=== PATIENT | female | born 1935 | race Caucasian/White ===

== ENCOUNTER 2017-06-10 11:45 | Observation (INO) ==
[2017-06-10] MEDS ORDERED: SALINE FLUSH 10ml SYRINGE IVF PRN (12:21)
--- OUTSIDE RECORDS SUMMARY | 2017-06-10 12:30 | External Medical Summary | Referral Summary ---
:1935 Author Organization [facility] Address [address] [place] [address] [place] [address] Care Team Providers Name Role Phone Lang Morgan Jorge Alberto Primary Care Physician Encounter Date(s): 06/25/15 - 06/25/15 [facility] [address] [place] [phone] Discharge Diagnosis: Acute upper respiratory infection Discharge Disposition: 01-Home or Self Care Attending Physician: Sunita Zamora PA-C Admitting Physician: Sunita Zamora PA-C Vital Signs Most recent to oldest [Reference Range]: 1 Temperature Tympanic [36.6-38.1 degC] 36.3 degC *LOW* (06/25/15 9:04 AM) Peripheral Pulse Rate [60-100 bpm] 68 bpm (06/25/15 9:04 AM) Respiratory Rate [14-20 br/min] 18 br/min (06/25/15 9:04 AM) Blood Pressure [90-140/60-90 mmHg] 110/60 mmHg (06/25/15 9:04 AM) Problem List Condition Effective Dates Status Health Status Informant Allergy(Confirmed) Active Appendectomy(Confirmed) Active Abnormal blood sugar(Confirmed) Active Paranoid schizophrenia, chronic Active condition(Confirmed) Constipation(Confirmed) Active Depression(Confirmed) Active Disease-skin conditions(Confirmed) Active Sun exposure, severe/5 serious Active sunburns(Confirmed) Hormone replacement therapy(Confirmed) Active High cholesterol(Confirmed) Active Hysterectomy(Confirmed) Active Inflamed seborrheic keratosis Active (disorder)(Confirmed) Insomnia(Confirmed) Active Acute knee pain(Confirmed) Active Basal cell carcinoma(Confirmed) Active Breast cancer(Confirmed) Active Hot flashes(Confirmed) Active Non-neoplastic nevus Active (disorder)(Confirmed) Onychomycosis(Confirmed) Active Osteoarthritis(Confirmed) Active Pneumonia(Confirmed) 2007 Active Pneumothorax(Confirmed) Active 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) History for Hypercholesterolemia Active without hypertriglyceridemia(Confirmed) Scarlet fever(Confirmed) 1940 Active Schizophrenia(Confirmed) Active Seborrheic keratosis(Confirmed) Active STD (female)(Confirmed) 1979 Active 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 Chicken pox(Confirmed) Active Allergies, Adverse Reactions, Alerts No Known Allergies Medications Abilify 5 mg, Oral, Daily, 0 Refill(s) Start Date: 10/31/13 Status: Orderedcalcium carbonate 500 mg, Oral, Daily, 0 Refill(s) Start Date: 10/31/13 Status: OrderedFish Oil 1000 mg oral capsule 1 caps, Oral, Daily, 0 Refill(s) Start Date: 10/31/13 Status: OrderedFosamax 70 mg oral tablet See Instructions, TAKE 1 TABLET EVERY WEEK, # 12 tabs, 1 Refill(s), eRx: [facility], TAKE 1 TABLET EVERY WEEK Start Date: 06/01/15 Status: OrderedMetamucil 1.7 g, Oral, Daily, constipation, 0 Refill(s) Start Date: 10/31/13 Status: OrderedMilk of Magnesia 30 mL, Oral, Bedtime (once a day), as needed for constipation, 0 Refill(s) Start Date: 10/31/13 Status: OrderedPravachol 40 mg oral tablet 40 mg 1 tabs, Oral, Daily, # 30 tabs, 0 Refill(s), 1 tabs Oral Daily Start Date: 04/27/15 Status: OrderedSenna S 1 tabs, Oral, Bedtime (once a day), Constipation, 0 Refill(s) Start Date: 10/31/13 Status: OrderedSEROquel XR 100 mg, Oral, qPM, 0 Refill(s) Start Date: 10/31/13 Status: OrderedVitamin C 100 mg, Oral, Daily, 0 Refill(s) Start Date: 10/31/13 Status: Orderedvitamin E 400 Intl_Units, Oral, Daily, 0 Refill(s) Start Date: 10/31/13 Status: OrderedZithromax Z-Tevin 250 mg oral tablet 1 packets, Oral, Daily, as directed on package labeling, X 5 days, # 6 tabs, 0 Refill(s), Pharmacy: [facility] #[id number], 1 packets Oral Daily,x5 days, Instr:as directed on package labeling Start Date: 06/25/15 Stop Date: 06/30/15 Status: Ordered Results No data available for this section Immunizations Vaccine Date Refusal Reason tetanus/diphth/pertuss (Tdap) adult/adol 05/20/13 influenza virus vaccine, inactivated 02/24/15 zoster vaccine live1 05/22/14 1Result Comment: [03/02/2015] [facility] Procedures Procedure Date Related Diagnosis Body Site Colonoscopy 2011 Knee replacement-right 10/12/09 Insertion of Venous access device maintenance 04/21/08 with SQ resev. Rt Mastectomy with sentinel node 03/21/08 Knee replacement-left 03/27/06 Appendectomy 1956 Tonsillectomy 1956 Cataract extraction Hysterectomy Social History Social History Type Response Smoking Status Never smoker Assessment and Plan Extracted from: Title: Ambulatory Patient Education Author: Sunita Zamora PA-C Date: ENT Upper Respiratory Infection, Adult An upper respiratory infection (URI) is also sometimes known as the common cold. The upper respiratory tract includes the nose, sinuses, throat, trachea, and bronchi. Bronchi are the airways leading to the lungs. Most people improve within 1 week, but symptoms can last up to 2 weeks. A residual cough may last even longer. CAUSES Many different viruses can infect the tissues lining the upper respiratory tract. The tissues become irritated and inflamed and often become very moist. Mucus production is also common. A cold is contag ious. You can easily spread the virus to others by oral contact. This includes kissing, sharing a glass, coughing, or sneezing. Touching your mouth or nose and then touching a surface, which is then isabel ched by another person, can also spread the virus. SYMPTOMS Symptoms typically develop 1 to 3 days after you come in contact with a cold virus. Symptoms vary from person to person. They may include: Runny nose. Sneezing. Nasal congestion. Sinus irritation. Sore throat. Loss of voice (laryngitis). Cough. Fatigue. Muscle aches. Loss of appetite. Headache. Low-grade fever. DIAGNOSIS You might diagnose your own cold based on familiar symptoms, since most people get a cold 2 to 3 times a year. Your caregiver can confirm this based on your exam. Most importantly, your caregiver can ch sana that your symptoms are not due to another disease such as strep throat, sinusitis, pneumonia, asthma, or epiglottitis. Blood tests, throat tests, and X- rays are not necessary to diagnose a common co ld, but they may sometimes be helpful in excluding other more serious diseases. Your caregiver will decide if any further tests are required. RISKS AND COMPLICATIONS You may be at risk for a more severe case of the common cold if you smoke cigarettes, have chronic heart disease (such as heart failure) or lung disease ( such as asthma), or if you have a weakened immun e system. The very young and very old are also at risk for more serious infections. Bacterial sinusitis, middle ear infections, and bacterial pneumonia can complicate the common cold. The common cold ca n worsen asthma and chronic obstructive pulmonary disease (COPD). Sometimes, these complications can require emergency medical care and may be life- threatening. PREVENTION The best way to protect against getting a cold is to practice good hygiene. Avoid oral or hand contact with people with cold symptoms. Wash your hands often if contact occurs. There is no clear evidence that vitamin C, vitamin E, echinacea, or exercise reduces the chance of developing a cold. However, it is always recommended to get plenty of rest and practice good nutrition. TREATMENT Treatment is directed at relieving symptoms. There is no cure. Antibiotics are not effective, because the infection is caused by a virus, not by bacteria. Treatment may include: Increased fluid intake. Sports drinks offer valuable electrolytes, sugars , and fluids. Breathing heated mist or steam (vaporizer or shower). Eating chicken soup or other clear broths, and maintaining good nutrition. Getting plenty of rest. Using gargles or lozenges for comfort. Controlling fevers with ibuprofen or acetaminophen as directed by your caregiver. Increasing usage of your inhaler if you have asthma. Zinc gel and zinc lozenges, taken in the first 24 hours of the common cold, can shorten the duration and lessen the severity of symptoms. Pain medicines may help with fever, muscle aches, and throat linda n. A variety of non-prescription medicines are available to treat congestion and runny nose. Your caregiver can make recommendations and may suggest nasal or lung inhalers for other symptoms. HOME CARE INSTRUCTIONS Only take evnu-fvn-lzwqkrk or prescription medicines for pain, discomfort , or fever as directed by your caregiver. Use a warm mist humidifier or inhale steam from a shower to increase air moisture. This may keep secretions moist and make it easier to breathe. Drink enough water and fluids to keep your urine clear or pale yellow. Rest as needed. Return to work when your temperature has returned to normal or as your caregiver advises. You may need to stay home longer to avoid infecting others. You can also use a face mask and careful hand washing to prevent spread of the virus. SEEK MEDICAL CARE IF: After the first few days, you feel you are getting worse rather than better. You need your caregiver's advice about medicines to control symptoms. You develop chills, worsening shortness of breath, or brown or red sputum. These may be signs of pneumonia. You develop yellow or brown nasal discharge or pain in the face, especially when you bend forward. These may be signs of sinusitis. You develop a fever, swollen neck glands, pain with swallowing, or white areas in the back of your throat. These may be signs of strep throat. SEEK IMMEDIATE MEDICAL CARE IF: You have a fever. You develop severe or persistent headache, ear pain, sinus pain, or chest pain. You develop wheezing, a prolonged cough, cough up blood, or have a change in your usual mucus (if you have chronic lung disease). You develop sore muscles or a stiff neck. Document Released: 11/01/2001 Document Revised: 07/30/2012 Document Reviewed: 08/13/2014 [facility] Patient Information 2015 [facility]. This information is not intended to replace advice given to you by your health care provider. Make sure you discuss any questions you have with your health care provider. No follow up information was provided. Extracted from: Title: Office Visit Note- URI Author: Sunita Zamora PA-C Date: 06/25/15 Assessment/Plan Acute upper respiratory infection Pt states that she "always gets Amoxicillin " and wants something different. Will treat with Z-tevin at this time. Pt advised to push fluids and rest. She is to let us k now before she leaves if she is not doing any better. Dr. Morgan notified that pt is planning on moving. Ordered: Office Visit Level 3 Est [address] Orders: azithromycin, 1 packets, Oral, Daily, as directed on package labeling , X 5 days, # 6 tabs, 0 Refill(s), [facility] #[id number], 1 packets Oral Daily,x5 days,Instr:as directed on package labeling
--- OUTSIDE RECORDS SUMMARY | 2017-06-10 12:30 | External Medical Summary | Referral Summary ---
:1935 Author Organization [facility] , D[facility]at[facility] Address [address] [place] [address] Care Team Providers Name Role Phone Lang Morgan Primary Care Physician Encounter [facility] [id number] Date(s): 02/25/15 - 02/25/15 [facility] [address] [place] [address]- [place] Discharge Diagnosis: Seborrheic keratosis, inflamed Discharge Diagnosis: Solar degeneration Discharge Diagnosis: Seborrheic keratosis Discharge Diagnosis: History of basal cell carcinoma Discharge Diagnosis: Skin tag Discharge Disposition: 01-Home or Self Care Attending Physician: Jimi Caballero MD Admitting Physician: Jimi Caballero MD Referring Physician: Lang Morgan MD Vital Signs No data available for this section Problem List Condition Effective Dates Status Health [...] for Hypercholesterolemia Active without hypertriglyceridemia(Confirmed) Scarlet fever(Confirmed) 1939 Active Schizophrenia(Confirmed) Active Seborrheic keratosis(Confirmed) Active STD [...] 10/31/13 Status: OrderedFosamax 70 mg oral tablet 70 mg 1 tabs, Oral, qWeek, # 12 tabs, 1 Refill(s), Pharmacy: [facility], 1 tabs Oral qWeek Start Date: 01/27/15 Status: OrderedMetamucil 1.7 g, Oral, Daily, constipation, 0 Refill(s) Start Date: 10/31/13 Status: OrderedMilk of Magnesia 30 mL, Oral, Bedtime (once a day), as needed for constipation, 0 Refill(s) Start Date: 10/31/13 Status: OrderedPravachol 40 mg oral tablet 40 mg 1 tabs, Oral, Daily, # 90 tabs, 1 Refill(s), Pharmacy: [facility], 1 tabs Oral Daily Start Date: 02/06/15 Status: OrderedSenna S 1 tabs, Oral, Bedtime (once a day), Constipation, 0 Refill(s) Start Date: 10/31/13 Status: OrderedSEROquel XR 100 mg, Oral, qPM, 0 Refill(s) Start Date: 10/31/13 Status: OrderedVitamin C 100 mg, Oral, Daily, 0 Refill(s) Start Date: 10/31/13 Status: Orderedvitamin E 400 Intl_Units, Oral, Daily, 0 Refill(s) Start Date: 10/31/13 Status: Ordered Results No data available for this section Immunizations Vaccine Date Refusal Reason tetanus/diphth/pertuss (Tdap) adult/adol 05/20/13 influenza virus vaccine, inactivated 02/24/15 zoster vaccine live1 05/22/14 1Result Comment: [03/02/2015] [facility] Procedures Procedure Date Related Diagnosis Body Site Removal of skin tags, multiple fibrocutaneous 02/25/15 tags, any area; up to and including 15 lesions.. Colonoscopy 2011 Knee replacement-right 10/12/09 Insertion of Venous access device maintenance 04/21/08 with SQ resev. Rt Mastectomy with sentinel node 03/21/08 Knee replacement-left 03/27/06 Appendectomy 1956 Tonsillectomy 1956 Cataract extraction Hysterectomy Social History Social History Type Response Smoking Status Never smoker Assessment and Plan Extracted from: Title: Office Visit Note Author: Jimi Caballero MD Date: 02/25/15 Assessment/Plan History of basal cell carcinoma Seborrheic keratosis Seborrheic keratosis, inflamed Solar degeneration
--- OUTSIDE RECORDS SUMMARY | 2017-06-10 12:30 | External Medical Summary | Referral Summary ---
:1935 Author Organization [facility] [address] [place] [address] Care Team Providers Name Role Phone Lang Morgan Primary Care Physician Encounter [facility] [id number] Date(s): 06/06/16 - 06/06/16 [facility] [address] [place] [address] [place] Discharge Diagnosis: Breast cancer Discharge Diagnosis: Solar degeneration Discharge Diagnosis: Osteoporosis Discharge Diagnosis: Inflamed seborrheic keratosis (disorder) Discharge Diagnosis: Abnormal blood sugar Discharge Diagnosis: Schizophrenia Discharge Diagnosis: History for Hypercholesterolemia without hypertriglyceridemia Discharge Disposition: 01-Home or Self Care Attending Physician: Lang Morgan MD Admitting Physician: Lang Morgan MD Vital Signs Most recent to oldest [Reference Range]: 1 Blood Pressure [90-140/60-90 mmHg] 120/70 mmHg (06/06/16 9:56 AM) Problem List Condition Effective Dates Status [...] nevus Active (disorder)(Confirmed) Onychomycosis(Confirmed) Active Osteoarthritis(Confirmed) Active Osteoporosis(Confirmed) Active Pneumonia(Confirmed) 2007 Active Pneumothorax(Confirmed) Active 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) History for Hypercholesterolemia Active without hypertriglyceridemia(Confirmed) Scarlet fever(Confirmed) 1940 Active Schizophrenia(Confirmed) Active Seborrheic keratosis(Confirmed) Active STD (female)(Confirmed) 1979 Active 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 Chicken pox(Confirmed) Active Allergies, Adverse Reactions, Alerts No Known Allergies Medications beta-carotene 25,000 units oral capsule 25,000 units 1 caps, Oral, Daily, 0 Refill(s) Start Date: 07/16/15 Status: Orderedcalcium carbonate 500 mg, Oral, Daily, 0 Refill(s) Start Date: 10/31/13 Status: OrderedFosamax 70 mg oral tablet See Instructions, TAKE 1 TABLET EVERY WEEK, # 12 tabs, 1 Refill(s), eRx: [facility], TAKE 1 TABLET EVERY WEEK Start Date: 06/01/15 Status: OrderedMetamucil 1.7 g, Oral, Daily, constipation, 0 Refill(s) Start Date: 10/31/13 Status: OrderedMilk of Magnesia 30 mL, Oral, Bedtime (once a day), as needed for constipation, 0 Refill(s) Start Date: 10/31/13 Status: Orderedpravastatin 40 mg oral tablet See Instructions, TAKE 1 TABLET EVERY DAY, # 90 tabs, eRx: [facility], TAKE 1 TABLET EVERY DAY Start Date: 01/13/16 Status: OrderedVitamin C 500 mg, Oral, Daily, 0 Refill(s) Start Date: 10/31/13 Status: Orderedvitamin E 400 Intl_Units, Oral, Daily, 0 Refill(s) Start Date: 10/31/13 Status: Ordered Results Chemistry Most recent to oldest [Reference Range]: 1 Sodium Lvl [135-144 mEq/L] 142 mEq/L (06/06/16 10:23 AM) Potassium Lvl [3.5-5.2 mEq/L] 4.2 mEq/L (06/06/16 10:23 AM) Chloride [99-111 mEq/L] 107 mEq/L (06/06/16 10:23 AM) CO2 [22-31 mEq/L] 28 mEq/L (06/06/16 10:23 AM) AGAP [3-20] 7 (06/06/16 10:23 AM) BUN [10-20 mg/dL] 15 mg/dL (06/06/16 10:23 AM) Glucose Lvl [70-99 mg/dL] 94 mg/dL (06/06/16 10:23 AM) Creatinine Lvl [0.57-1.11 mg/dL] 0.76 mg/dL (06/06/16 10:23 AM) eGFR [>60 mL/min] >60 mL/min 1 (06/06/16 10:23 AM) Calcium Lvl [8.9-10.5 mg/dL] 9.0 mg/dL (06/06/16 10:23 AM) Albumin Lvl [3.4-4.8 gm/dL] 3.7 gm/dL (06/06/16 10:23 AM) Total Protein [6.0-7.6 gm/dL] 6.2 gm/dL (06/06/16 10:23 AM) Globulin [1.8-4.0 gm/dL] 2.5 gm/dL (06/06/16 10:23 AM) ALT [0-55 U/L] 13 U/L (06/06/16 10:23 AM) AST [5-34 U/L] 17 U/L (06/06/16 10:23 AM) Alk Phos [40-150 U/L] 61 U/L (06/06/16 10:23 AM) Bili Total [0.2-1.2 mg/dL] 0.3 mg/dL (06/06/16 10:23 AM) Chol [0-199 mg/dL] 256 mg/dL *HI* (06/06/16 10:23 AM) Trig [0-149 mg/dL] 288 mg/dL *HI* (06/06/16 10:23 AM) HDL [40-84 mg/dL] 46 mg/dL (06/06/16 10:23 AM) LDL [0-130 mg/dL] 152 mg/dL *HI* (06/06/16 10:23 AM) VLDL Cholesterol [0-28 mg/dL] 58 mg/dL *HI* (06/06/16 10:23 AM) Cardiac Risk [0.0-5.0] 5.6 *HI* (06/06/16 10:23 AM) TSH with Reflex Free T4 [0.35-4.94] 1.97 (06/06/16 10:23 AM) 1Result Comment: Multiply eGFR results by 1.21 for race. Immunizations Given and Recorded Vaccine Date Status Refusal Reason tetanus/diphth/pertuss (Tdap) adult/adol 05/20/13 Recorded influenza virus vaccine, inactivated 02/03/16 Given influenza virus vaccine, inactivated 02/24/15 Recorded pneumococcal 23-polyvalent vaccine1 07/04/15 Recorded zoster vaccine live2 05/22/14 Recorded 1Location History: given at [id number] Comment: [03/02/2015] [facility] Procedures [...] Extracted from: Title: Ambulatory Patient Education Author: Lang Morgan MD Date: Obstetrics and Gynecology Breast Scan Breast scan is procedure done to examine dense breast tissue, which is difficult in a normal mammogram. It is used in women with breast lesions from fibrocystic disease, fibroadenoma, and fat necrosis. It also is used to determine the course of treatment for breast cancer. LET YOUR HEALTH CARE PROVIDER KNOW ABOUT: Any allergies you have. All medicines you are taking, including vitamins, herbs, eye drops, creams, and jcih-kvh-aulpmxo medicines. Previous problems you or members of your family have had with the use of anesthetics. Any blood disorders you have. Previous surgeries you have had. Medical conditions you have. or the possibility that you may be . RISKS AND COMPLICATIONS Generally, this is a safe procedure. However, as with any procedure, complications can occur. Possible complications include: Slight discomfort from injection of radioactive substance. Allergic reaction to contrast or radioactive substance used in exam. BEFORE THE PROCEDURE No fasting or sedation is required. PROCEDURE You will be asked to remove all jewelry and clothing from the waist up. An IV tube will be inserted in your arm or hand opposite the side of the breast to be examined. If both breasts are being evaluated, the IV tube may be inserted into a vein in the foot. You will be positioned face down on a table. The breast to be imaged will be placed through an opening in the table. The radioactive agent will be injected into the IV tube. You may experience a slight metallic taste after the injection. Imaging will begin a few minutes after the injection. A scanner will be placed over the breast and will record the radiation given off. You may also be asked to get into different positions during the scan. When the scan is complete, the IV tube is removed. AFTER THE PROCEDURE You will be asked to get up slowly from the scanner to avoid light- headedness from lying flat during the procedure. Drink plenty of fluids to help flush the remaining radioactive agent from your body. This information is not intended to replace advice given to you by your health care provider. Make sure you discuss any questions you have with your health care provider. Document Released: 06/02/2005 Document Revised: 05/13/2014 Document Reviewed: 01/13/2014 [employer] Interactive Patient Education 2016 [employer]. No follow up information was provided. Extracted from: Title: Office Visit Note Author: Lang Morgan MD Date: 06/06/16 Assessment/Plan Abnormal blood sugar This issue was reviewed, appears stable, and current therapy continued except as mentioned. Appropriate lab was reviewed from the most recent appropriate entry and lab was ordered if needed in the c carlton/nursing orders, and follow up recommended generally in 90 days and no later then six months. Lab pending. Breast ca, Breast cancer The patient's issue is nearly or completely resolved. There is no further issues or testing desired by them at this time. Seeing Dr. Matson. Oncology notes reviewed from01/2016. Ordered: Comprehensive Metabolic Panel TSH with Reflex Free T4 High cholesterol, History for Hypercholesterolemia without hypertriglyceridemia This issue was reviewed, appears stable, and current therapy continued except as mentioned. Appropriate lab was reviewed from the most recent appropriate entry and lab was ordered if needed in the c carlton/nursing orders, and follow up recommended generally in 90 days and no later then six months. Lab pending. Needs to resume meds. Ordered: Lipid Panel Inflamed seborrheic keratosis (disorder) The patient's issue is nearly or completely resolved. There is no further issues or testing desired by them at this time. Osteoporosis Needs to resume meds. Schizophrenia We discussed several options for treatment for this condition. The patient declined any changes or other treatments at this time. Needs to re-establish with psych. Solar degeneration Saw Derm. We discussed several options for treatment for this condition. The patient declined any changes or other treatments at this time. No cancerous areas noted today. She is welcome t o be rechecked in Derm when she is interested. Declined today. Assessment/Plan Capillary hemangioma History of basal cell carcinoma Seborrheic keratosis Seborrheic keratosis, inflamed Solar degeneration [1]
--- OUTSIDE RECORDS SUMMARY | 2017-06-10 12:30 | External Medical Summary | Referral Summary ---
:1935 [facility] Address [address] [place] [address] [place] [address] Care Team Providers Name Role Phone Lang Morgan Primary Care Physician Encounter [facility] Date(s): 11/28/14 - 11/28/14 [facility] [place] [phone]- [place] Discharge Disposition: 01-Home or Self Care Attending Physician: Lang Morgan MD Admitting Physician: Lang Morgan MD Vital Signs Most recent to oldest [Reference Range]: 1 Blood Pressure [90-140/60-90 mmHg] 120/76 mmHg (11/28/14 10:50 AM) Problem List Condition Effective Dates Status [...] WEEK, # 12 tabs, 1 Refill(s), eRx: [facility], TAKE 1 TABLET [...] vaccine live1 05/22/14 1Result Comment: [03/02/2015] [facility] Procedures Procedure Date Related Diagnosis Body Site Colonoscopy 2012 Knee replacement-right 10/12/09 Insertion of Venous access device maintenance 04/21/08 with SQ resev. Rt Mastectomy with sentinel node 03/21/08 Knee replacement-left 03/27/06 Appendectomy 1956 Tonsillectomy 1956 Cataract extraction Hysterectomy Social History Social History Type Response Smoking Status Never smoker Assessment and Plan Extracted from: Title: Ambulatory Patient Education Author: Lang Morgan MD Date: Family Medicine Breast Cancer, Early Stage, Surgery Choices Breast cancer is the most common cancer, except for skin cancer. It is the second most common cause of , except for lung cancer, in women. The risk of a woman developing breast cancer is 12.5%. Wendy ast cancer in women younger than 25 years old is rare. Most of these cancer cases have spread to the breast from another part of the body (metastatic ). Finding out that you have breast cancer is an emotional shock and is difficult to understand, because it is an overwhelming, serious, and life-threatening disease. You will need to make important decisions about how you want it treated. As a woman with early-stage breast cancer (DCIS or Stage I, IIA, IIB, IIIA, or IV) you may be able to choose which type of breast surgery to have. Your caregiver will help you understand what stage you are in. Often, your choices are: Removal of the cancerous part(s) of the breast (breast-sparing surgery ). Lumpectomy. Partial/Segmental mastectomy. Removal of the whole breast (simple mastectomy ). Research shows that women with early-stage breast cancer who have breast-sparing surgery along with radiation therapy live as long as those who hav e a mastectomy. Most women with breast cancer will lead long, healthy lives after treatment. Reconstructive surgery. This type of surgery is to make the breast and nipple area as normal looking as it was before the mastectomy. It is usually done by a plastic surgeon at the same time as the mastectomy. There are several types of reconstructive surgery that should be discussed with your caregiver and plastic surgeon. Lymph node surgery. [place] (removing those lymph nodes in the armpit that breast cancer spreads to first). Axillary lymph node dissection (removing all the lymph nodes in the armpit). TREATMENT Treatment for breast cancer usually begins a few weeks after diagnosis. In these weeks, you should meet with a surgeon, learn the facts about your surgery choices, treatment options, get a second opinion, and think about what is important to you. Treatment choices include: Surgery. Radiation. Chemotherapy. Medicines, hormones. Reconstructive breast surgery. Any combination of the above treatments. Choose which kind of surgery to have. If radiation, chemotherapy, or hormone therapy is considered, this also should be discussed before the surgery. Radical breast surgery is rarely performed now. Usua kendall, lumpectomy, partial/segmental mastectomy, simple mastectomy in combination with radiation, chemotherapy, and/or hormone treatment is recommended. Clinical trial protocols (specific treatment plan w ith surgery and radiation, chemotherapy, and hormones ) for breast cancer have been put in place in hospitals, universities, medical schools, and cancer centers all over the country. These patients are followed for several years to find out what treatment gives the best results for the protocol given, for the different stages of breast cancer. Most women want to make this choice with help from their caregiver. After all, the kind of surgery you have will affect how you look and feel. But it is often hard to decide what to do. The more informa tion you have, the better the decision you can make. Talk to a surgeon about your breast cancer surgery choices. Find out what happens during surgery, types of problems that sometimes occur, and other kinds of treatment (if any) you will need after s urgery. Be sure to ask a lot of questions and learn as much as you can. You may also wish to talk with family members, friends, or others who have had breast cancer surgery, radiation therapy, chemotherapy, or hormone therapy. After talking with a surgeon, you may want a second opinion. This means talking with another doctor or surgeon who might tell you about other treatment options. They may simply give you information that can help you feel better about the choice you are making. Do not worry about hurting your surgeon's feelings. It is common practice to get a second opinion, and some insurance companies require it . Plus, it is better to get a second opinion than to worry that you have made the wrong choice. STAGES OF BREAST CANCER Staging of breast cancer depends on the size of the tumor, if and how far it has spread, lymph node involvement in the armpits, and whether it has spread to other parts of the body. If you are unsure of the stage of your cancer, ask your caregiver. The following are the stages of breast cancer: Stage 0: This means you either have DCIS or LCIS. DCIS (Ductal Carcinoma in Situ ) is very early breast cancer. It is often too small to form a lump. Your caregiver may refer to DCIS as noninvasive cancer. LCIS (Lobular Carcinoma in Situ ) is not cancer, but it may increase the chance that you will get breast cancer. Talk with your caregiver about treatment options, if you are diagnosed with LCIS. The 5 year survival rate in this stage is almost 100%. Stage I: Your cancer is less than 1 inch across (2 centimeters) or about the size of a quarter. The cancer is only in the breast. It has not spread to lymph nodes or other parts of your body. Stage IIA: No cancer is found in your breast. However, cancer is found in the lymph nodes under your arm, or Your cancer is 1 inch (2 centimeters) or smaller. It has spread to 3 lymph nodes or less (the lymph nodes under your arm), or Your cancer is about 1-2 inches (2-5 centimeters). It has not spread to the lymph nodes under your arm. Stage IIB: Your cancer is about 1-2 inches (2-5 centimeters). It has spread to the lymph nodes under your arm, or Your cancer is larger than 2 inches (5 centimeters). It has not spread to the lymph nodes under your arm. The 5 year survival rate is 85 to 90%. Stage IIIA: No cancer is found in the breast. It is found in lymph nodes under your arm. The lymph nodes are attached to each other, or Your cancer is 2 inches (5 centimeters) or smaller. It has spread to lymph nodes under your arm. The lymph nodes are attached to each other, or Your cancer is larger than 2 inches (5 centimeters) and has spread to lymph nodes under your arm, and they are not attached to each other. Your cancer is smaller than 2 inches (5 centimeters) and has spread to lymph nodes above your collarbone. Inflammatory cancer of the breast (red rash, tender and swollen breasts ) is in the stage III category. The 5 year survival rate is 45 to 67%. Stage IV: Cancer cells have spread to other parts of the body. The 5 year survival rate is about 20%. ABOUT LYMPH NODES Lymph nodes are part of your body's immune system, which helps fight infection and disease. Lymph nodes are small, round, and clustered (like a bunch of grapes) throughout your body. Axillary lymph nodes are in the area under your arm. Breast cancer may spread to these lymph nodes first, even when the tumor in the breast is small. This is why most surgeons take out some of these lymph nodes at the time of breast surgery. Lymphedema is swelling caused by a buildup of lymph fluid. You may have this type of swelling in your arm, if your lymph nodes are taken out with surgery or damaged by radiation therapy. Lymphedema can show up soon after surgery. The symptoms are often mild and last for a short time. Lymphedema can show up months or even years after cancer treatment is over. Often, lymphedema develops after an insect bite, minor injury, or burn on the arm where your lymph nodes were removed. S ometimes, this can be painful. One way to reduce the swelling is to work with a caregiver who specializes in rehabilitation, or with a physical therapist. Glenmont lymph node biopsy is surgery to remove as few lymph nodes as possible from under the arm. The surgeon first injects a dye in the breast to see which lymph nodes the breast tumor drains int o. Then, he or she removes these nodes to see if they have any cancer. If there is no cancer, the surgeon may leave the other lymph nodes in place. This surgery is fairly new and is being studied experi mentally. Talk with your surgeon if you want to learn more. COMPARE YOUR CHOICES BREAST-SPARING SURGERY Is this surgery right for me? Breast-sparing surgery with radiation is a safe choice for most women who have early-stage breast cancer. This means that your cancer is DCIS or at Stage I, IIA, IIB, or IIIA. What are the names of the different kinds of surgery? Lumpectomy. Partial mastectomy. Breast-sparing surgery. Segmental mastectomy. Simple mastectomy. Glenmont lymph node removal. Axillary lymph node excision. What doctors am I likely to see? Oncologist. Surgeon. Radiation Oncologist. Chemotherapy Oncologist. What will my breast look like after surgery? Your breast should look a lot like it did before surgery. But if your tumor is large, your breast may look different or smaller after breast-sparing surgery. Will I have feeling in the area around my breast? Yes. You should still have feeling in your breast, nipple, and areola ( dark area around your nipple). Will I have pain after the surgery? You may have pain after surgery. Talk with your caregiver about ways to control this pain. What other problems can I expect? You may feel very tired after radiation therapy. You may get swelling in your arm (lymphedema ). Will I need more surgery? Maybe. You may need more surgery to remove lymph nodes from under your arm. Also, if the surgeon does not remove all your cancer the first time, you may need more surgery. What other types of treatment will I need? You may need radiation therapy, given almost every day for 5 to 8 weeks. You may also need chemotherapy, hormone therapy, or both. Will insurance pay for my surgery? Check with your insurance company to find out how much it pays for breast cancer surgery and other needed treatments. Will the type of surgery I have affect how long I live? Women with early-stage breast cancer who have breast-sparing surgery followed by radiation live just as long as women who have a mastectomy. Most women with breast cancer will lead long, healthy lives after treatment. What are the chances that my cancer will come back after surgery? About 10% of women who have breast-sparing surgery along with radiation therapy get cancer in the same breast within 12 years. If this happens, you will need a mastectomy, but it will not affect how long you live. MASTECTOMY SURGERY Is this surgery right for me? Mastectomy is a safe choice for women who have early-stage breast cancer ( DCIS, Stage I, IIA, IIB, or IIIA). You may need a mastectomy if: You have small breasts and a large tumor. You have cancer in more than one part of your breast. The tumor is under the nipple. You do not have access to radiation therapy. What are the names of the different kinds of surgery? Total mastectomy. Modified radical mastectomy (not usually done now). Double mastectomy. Simple mastectomy. What doctors am I likely to see? Oncologist. Surgeon. Radiation Oncologist. Chemotherapy Oncologist. What will my breast look like after surgery? Your breast and nipple will be removed. You will have a flat chest on the side of your body where the breast was removed. Will I have feeling in the area around my breast? Maybe. After surgery, you will have no feeling (numb) in your chest wall and maybe also under your arm. This numb feeling should go away in 1-2 years, but it will never feel like it did before. Als o, the skin where your breast was may feel tight. Will I have pain after the surgery? You may have pain after surgery. Talk with your caregiver about ways to control this pain. What other problems can I expect? You may have pain in your neck or back. You may feel out of balance, if you had large breasts and do not have reconstruction surgery. You may get swelling in your arm (lymphedema ). Will I need more surgery? Maybe. You may need surgery to remove lymph nodes from under your arm. Also, if you have problems after your mastectomy, you may need to see your surgeon for treatment. What other types of treatment will I need? You may also need chemotherapy, hormone therapy, or radiation therapy. Some women get all 3 types of therapy or any combination of the 3. Will insurance pay for my surgery? Check with your insurance company to find out how much it pays for breast cancer surgery and other needed treatments. Will the type of surgery I have affect how long I live? Women with early-stage breast cancer who have a mastectomy live as long as women who have breast-sparing surgery followed by radiation therapy. Most women with breast cancer will lead long, healthy lives after treatment. What are the chances that my cancer will come back after surgery? About 5% of women who have a mastectomy will get cancer on the same side of their chest within 12 years. MASTECTOMY AND BREAST RECONSTRUCTION SURGERY Is this surgery right for me? If you have a mastectomy, you might also want breast reconstruction surgery. You can choose to have reconstruction surgery at the same time as your mastectomy. You can wait and have it at a later date. What are the names of the different kinds of surgery? Breast implant. Tissue flap surgery. Reconstructive plastic surgery. What doctors am I likely to see? Oncologist. Surgeon. Radiation Oncologist. Reconstructive Plastic Surgeon. Chemotherapy Oncologist. What will my breast look like after surgery? Although you will have a breast-like shape, your breast will not look the same as it did before surgery. Will I have feeling in the area around my breast? No. The area around your breast will always be numb (have no feeling). Will I have pain after the surgery? You are likely to have pain after major surgery, such as mastectomy and reconstruction surgery. There are many ways to deal with pain. Let your caregiver know if you need relief from pain. What other problems can I expect? It may take you many weeks or even months to recover from breast reconstruction surgery. If you have an implant, you may get infections, pain, or hardness. Also, you may not like how your breast-li ke shape looks. You may need more surgery if your implant breaks or leaks. If you have tissue flap surgery, you may lose strength in the part of your body where the flap came from. You may get swelling in your arm (lymphedema ). Will I need more surgery? Yes. You will need surgery at least 2 more times to build a new breast- like shape. With implants, you may need more surgery months or years later. You may also need surgery to remove lymph nodes from under your arm. What other types of treatment will I need? You may need chemotherapy, hormone therapy, or radiation therapy. Some women get all 3 types of therapy or any combination of the 3. Will insurance pay for my surgery? Check with your insurance company to find out if it pays for breast reconstruction surgery. You should also ask if your insurance will pay for problems that may result from breast reconstruction surgery. Will the type of surgery I have affect how long I live? Women with early-stage breast cancer who have a mastectomy live the same amount of time as women who have breast-sparing surgery followed by radiation therapy. Most women with breast cancer will lead long, healthy lives after treatment. What are the chances that my cancer will come back after surgery? About 5% of women who have a mastectomy will get cancer on the same side of their chest within 12 years. Breast reconstruction surgery does not affect the chances of your cancer coming back. Where can I learn more about coping with life after cancer? To learn more about life after cancer, you might want to read "Facing Forward: Life After Cancer Treatment." You can get this booklet at www.cancer.gov/ publications or by calling 0-278-8-CANCER. THINK ABOUT WHAT IS IMPORTANT TO YOU After you have talked with your surgeon and learned the facts, you may also want to talk with your spouse or partner, family, friends, or other women who have had breast cancer surgery. The more yo u know about breast cancer, the treatment, and what happens afterward, the more informed you will be and the easier it will be for you to make good decisions that are important to you. Think about what is important to you. Here are some questions to think about: Do I want to get a second opinion? How important is it to me how my breast looks after cancer surgery? How important is it to me how my breast feels after cancer surgery? If I have breast-sparing surgery or more extensive surgery, am I willing to get radiation, hormone and/or chemotherapy? If I have a mastectomy, do I also want breast reconstruction surgery? If I have breast reconstruction surgery, do I want it at the same time as my mastectomy? What treatment does my insurance cover, and what do I need to pay for? Who would I like to talk with about my surgery, radiation, hormone, and chemotherapy choices? What else do I want to know, do, or learn before I make my choice about breast cancer surgery? After I have learned all I could and have talked with my surgeon, I will make a choice that feels right for me. A patient who takes the time to be well-informed will feel more comfortable about her decisions regarding surgery, and will feel better about the procedure following the surgery. Coping and Support: Be open and willing to talk to your family and friends about your cancer. Family and friends can be your best support group, to help you work through your concerns and worries. Discussing your thoughts, concerns, and intimacy issues with your spouse or partner is very important and helpful. Join support groups to share and learn how others with breast cancer cope and deal with their cancer. The [place] [employer] can help you find support groups in your area. Breast cancer may affect your confidence and feelings about being a total woman. It may interfere with your intimate relationship with your partner. Counseling may be necessary to help you overcome these feelings. Talk to a counselor, your clergyperson, psychologist, or psychiatrist. Talk to a medical device engineer, if you have financial questions or problems. Do not be afraid to ask for help, especially during your treatment. Learn to be as independent as possible, as soon as possible. Document Released: 07/28/2004 Document Revised: 09/02/2013 Document Reviewed: 04/05/2010 Exit[employer] Patient Information 2014 [employer]. No follow up information was provided. Extracted from: Title: Office Visit Note Author: Lang Morgan MD Date: 11/28/14 Assessment/Plan Onychomycosis Meds discussed and declined. Consult offered also and declined. Rt breast multifocal invasive Ductal carcinoma This issue is stable and appropriate refills, lab, and f/u have been discussed. Sees Dr. Matson/OSIEL. Schizophrenia This issue is stable and appropriate refills, lab, and f/u have been discussed. Seeing PV. Sore throat Amox 500mg po tid for ten days at her request.
--- OUTSIDE RECORDS SUMMARY | 2017-06-10 12:30 | External Medical Summary | Referral Summary ---
:1935 Author Organization [facility] Address [address] [place] [address] Care Team Providers Name Role Phone Lang Morgan Primary Care Physician Encounter [facility] [id number] Date(s): 02/25/15 - 02/25/15 [facility] [address] [place] [address]- [place] Discharge Diagnosis: Seborrheic keratosis, [...] Basal cell carcinoma(Confirmed) Active Breast cancer(Confirmed) Active Non-neoplastic nevus Active (disorder)(Confirmed) Onychomycosis(Confirmed) Active [...] qWeek, # 12 tabs, 1 Refill(s), Pharmacy: [facility], 1 tabs Oral qWeek Start Date: 01/27/15 Status: Orderedloratadine 10 mg oral tablet 1 tabs, Oral, BID, X 90 days, # 180 tabs, 1 Refill(s), Pharmacy: [facility] Mail Delivery,1 tabs Oral BID,x90 days Start Date: 09/25/14 Stop Date: 03/24/15 Status: OrderedMetamucil 1.7 g, Oral, Daily, constipation, 0 Refill(s) Start Date: 10/31/13 Status: OrderedMilk of Magnesia 30 mL, Oral, Bedtime (once a day), as needed for constipation, 0 Refill(s) Start Date: 10/31/13 Status: OrderedPravachol 40 mg oral tablet 40 mg 1 tabs, Oral, Daily, # 90 tabs, 1 Refill(s), Pharmacy: [facility] Mail Delivery, 1 tabs Oral Daily Start Date: 02/06/15 Status: OrderedSenna S 1 tabs, Oral, Bedtime (once a day), Constipation, 0 Refill(s) Start Date: 10/31/13 Status: OrderedSEROquel XR 100 mg, Oral, qPM, 0 Refill(s) Start Date: 10/31/13 Status: OrderedVitamin C 100 mg, Oral, Daily, 0 Refill(s) Start Date: 10/31/13 Status: Orderedvitamin E 400 Intl_Units, Oral, Daily, 0 Refill(s) Start Date: 6/12/14 Status: Ordered Results No data available for this section Immunizations Vaccine Date Refusal Reason tetanus/diphth/pertuss (Tdap) adult/adol 05/20/13 Procedures Procedure Date Related Diagnosis Body Site [...]
--- OUTSIDE RECORDS SUMMARY | 2017-06-10 12:30 | External Medical Summary | Referral Summary ---
:1935 Author Organization [facility] [address] [place] [id number] Care Team Providers Name Role Phone Lang Morgan Primary Care Physician Encounter [facility] [id number] Date(s): 02/03/16 - 02/03/16 [facility] [address] [place] [phone] Discharge Diagnosis: Constipation Discharge Diagnosis: Paranoid schizophrenia, chronic condition Discharge Diagnosis: Depression Discharge Diagnosis: Breast cancer Discharge Diagnosis: High cholesterol Discharge Diagnosis: Abnormal blood sugar Discharge Disposition: 01-Home or Self Care Attending Physician: Lang Morgan MD Admitting Physician: Lang Morgan MD Vital Signs Most recent to oldest [Reference Range]: 1 Blood Pressure [90-140/60-90 mmHg] 116/68 mmHg (02/03/16 8:43 AM) Problem List Condition Effective Dates Status [...] WEEK, # 12 tabs, 1 Refill(s), eRx: [facility], TAKE 1 TABLET EVERY WEEK Start Date: 06/01/15 Status: OrderedMetamucil 1.7 g, Oral, Daily, constipation, 0 Refill(s) Start Date: 10/31/13 Status: OrderedMilk of Magnesia 30 mL, Oral, Bedtime (once a day), as needed for constipation, 0 Refill(s) Start Date: 10/31/13 Status: Orderedpravastatin 40 mg oral tablet See Instructions, TAKE 1 TABLET EVERY DAY, # 90 tabs, eRx: [facility], TAKE 1 TABLET EVERY DAY Start Date: 01/13/16 Status: OrderedVitamin C 500 mg, Oral, Daily, 0 Refill(s) Start Date: 10/31/13 Status: Orderedvitamin E 400 Intl_Units, Oral, Daily, 0 Refill(s) Start Date: 10/31/13 Status: Ordered Results No data available for this section Immunizations Vaccine Date Refusal Reason tetanus/diphth/pertuss (Tdap) adult/adol 05/20/13 influenza virus vaccine, inactivated 02/03/16 influenza virus vaccine, inactivated 02/24/15 pneumococcal 23-polyvalent vaccine1 07/04/15 zoster vaccine live2 05/22/14 1Location History: given at [id number] Comment: [03/02/2015] [facility] Procedures Procedure [...] Morgan MD Date: Obstetrics and Gynecology Breast Cancer, Female Breast cancer is an abnormal growth of tissue (tumor) in the breast that is cancerous (malignant). Unlike noncancerous (benign) tumors, malignant tumors can spread to other parts of your body. The most common type of female breast cancer begins in the milk ducts (ductal carcinoma) . Breast cancer is one of the most common types of cancer in women. CAUSES The exact cause of female breast cancer is unknown. RISK FACTORS Age older than 55 years. Family history of breast cancer. Having the BRCA1 and BRCA2 genes. Personal history of radiation exposure. Obesity. Menstrual periods that begin before age 12 years. Menopause that begins after age 55 years. for the first time at the age of 35 years or older. Using hormone therapy. Drinking more than one alcoholic drink per day. SIGNS AND SYMPTOMS A painless lump in your breast. Changes in the size or shape of your breast. Breast skin changes, such as puckering or dimpling. Nipple abnormalities, such as scaling, crustiness, redness, or pulling in (retraction). Nipple discharge that is bloody or clear. DIAGNOSIS Your health care provider will ask about your medical history. He or she may also perform a number of procedures, such as: A physical exam. This will involve feeling the tissue around the breast and under the arms. Taking a sample of nipple discharge. The sample will be examined under a microscope. Breast X-rays (mammogram), breast ultrasound exams, or an MRI. Taking a tissue sample (biopsy) from the breast. The sample will be examined under a microscope to look for cancer cells. Your cancer will be staged to determine its severity and extent. Staging is a careful attempt to find out the size of the tumor, whether the cancer has spread , and if so, to what parts of the body. You may need to have more tests to determine the stage of your cancer: Stage 0The tumor has not spread to other breast tissue. Stage IThe cancer is only found in the breast. The tumor may be up to in (2 cm) wide. Stage IIThe cancer has spread to nearby lymph nodes. The tumor may be up to 2 in (5 cm) wide. Stage IIIThe cancer has spread to more distant lymph nodes. The tumor may be larger than 2 in (5 cm) wide. Stage IVThe cancer has spread to other parts of the body, such as the bones, brain, liver, or lungs. TREATMENT Depending on the type and stage, female breast cancer may be treated with one or more of the following therapies: Surgery to remove just the tumor (lumpectomy) or the entire breast ( mastectomy). Lymph nodes may also be removed. Radiation therapy, which uses high-energy rays to kill cancer cells. Chemotherapy, which is the use of drugs to kill cancer cells. Hormone therapy, which involves taking medicine to adjust the hormone levels in your body. You may take medicine to decrease your estrogen levels. This can help stop cancer cells from growing. HOME CARE INSTRUCTIONS Take medicines only as directed by your health care provider. Maintain a healthy diet. Consider joining a support group. This may help you learn to cope with the stress of having breast cancer. Keep all follow-up appointments as directed by your health care provider. SEEK MEDICAL CARE IF: You have a sudden increase in pain. You notice a new lump in either breast or under your arm. You develop swelling in either arm or hand. You lose weight without trying. You have a fever. You notice new fatigue or weakness. SEEK IMMEDIATE MEDICAL CARE IF: You have chest pain or trouble breathing. You faint. This information is not intended to replace advice given to you by your health care provider. Make sure you discuss any questions you have with your health care provider. Document Released: 08/16/2006 Document Revised: 05/29/2015 Document Reviewed: 07/02/2014 [facility] Patient Information 2016 Room 21 Media. No follow up information was provided. Extracted from: Title: Office Visit Note Author: Lang Morgan MD Date: 02/03/16 Assessment/Plan Abnormal blood sugar This issue was reviewed, appears stable, and current therapy continued except as mentioned. Appropriate lab was reviewed from the most recent appropriate entry and lab was order ed if needed in the cpoe/nursing orders, and follow up recommended generally in 90 days and no later then six months. Lab stable. Breast cancer The patient's issue is nearly or completely resolved. There is no further issues or testing desired by them at this time. Constipation The patient's issue is nearly or completely resolved. There is no further issues or testing desired by them at this time. Depression This issue was reviewed, appears stable, and current therapy continued except as mentioned. Appropriate lab was reviewed from the most recent appropriate entry and lab was ordered if need ed in the cpoe/nursing orders, and follow up recommended generally in 90 days and no later then six months. Seeing PV. High cholesterol This issue was reviewed, appears stable, and current therapy continued except as mentioned. Appropriate lab was reviewed from the most recent appropriate entry and lab was ordered i f needed in the cpoe/nursing orders, and follow up recommended generally in 90 days and no later then six months. Paranoid schizophrenia, chronic condition This issue was reviewed, appears stable, and current therapy continued except as mentioned. Appropriate lab was reviewed from the most recent appropriate en try and lab was ordered if needed in the cpoe/nursing orders, and follow up recommended generally in 90 days and no later then six months. The patient was given the vaccines requested per protocol and according to those needed for school/family/college/etc. Flu vaccine per request.
--- OUTSIDE RECORDS SUMMARY | 2017-06-10 12:30 | External Medical Summary | Referral Summary ---
:1935 Author Organization [facility] [address] [place] [address] Care Team Providers Name Role Phone Lang Morgan Primary Care Physician Encounter [facility] [id number] Date(s): 07/04/16 - 07/04/16 [facility] [address] [place] [phone] [place] Discharge Diagnosis: High cholesterol Discharge Diagnosis: Constipation Discharge Diagnosis: Osteoporosis Discharge Diagnosis: Depression Discharge Diagnosis: Breast cancer Discharge Diagnosis: Abnormal blood sugar Discharge Diagnosis: Paranoid schizophrenia, chronic condition Discharge Disposition: 01-Home or Self Care Attending Physician: Lang Morgan MD Admitting Physician: Lang Morgan MD Vital Signs Most recent to oldest [Reference Range]: 1 Blood Pressure [90-140/60-90 mmHg] 130/90 mmHg (07/04/16 9:29 AM) Problem List Condition Effective Dates Status Health Status Informant Allergy(Confirmed) Active Appendectomy(Confirmed) Active Abnormal blood sugar(Confirmed) Active Paranoid schizophrenia, chronic Active condition(Confirmed) Constipation(Confirmed) Active Depression(Confirmed) Active Disease-skin conditions(Confirmed) Active Sun exposure, severe/5 serious Active sunburns(Confirmed) High cholesterol(Confirmed) Active Hysterectomy(Confirmed) Active Inflamed seborrheic [...] WEEK, # 12 tabs, 1 Refill(s), eRx: [facility], TAKE 1 TABLET EVERY WEEK Start Date: 06/01/15 Status: OrderedMetamucil 1.7 g, Oral, Daily, constipation, 0 Refill(s) Start Date: 10/31/13 Status: OrderedMilk of Magnesia 30 mL, Oral, Bedtime (once a day), as needed for constipation, 0 Refill(s) Start Date: 10/31/13 Status: Orderedpravastatin 40 mg oral tablet See Instructions, TAKE 1 TABLET EVERY DAY, # 90 tabs, eRx: [facility], TAKE 1 TABLET EVERY DAY Start Date: 01/13/16 Status: OrderedVitamin C 500 mg, Oral, Daily, 0 Refill(s) Start Date: 10/31/13 Status: Orderedvitamin E 400 Intl_Units, Oral, Daily, 0 Refill(s) Start Date: 10/31/13 Status: Ordered Results No data available for this section Immunizations Given and Recorded Vaccine Date Status Refusal Reason tetanus/diphth/pertuss (Tdap) adult/adol 05/20/13 Recorded influenza virus vaccine, inactivated 02/03/16 Given influenza virus vaccine, inactivated 02/24/15 Recorded pneumococcal 23-polyvalent vaccine1 07/04/15 Recorded zoster vaccine live2 05/22/14 Recorded 1Location History: given at [id number] Comment: [03/02/2015] [facility] Procedures Procedure [...] Lang Morgan MD Date: Obstetrics and Gynecology Hyperglycemia High blood sugar (hyperglycemia) means that the level of sugar in your blood is higher than it should be. Signs of high blood sugar include: Feeling thirsty. Frequent peeing (urinating). Feeling tired or sleepy. Dry mouth. Vision changes. Feeling weak. Feeling hungry but losing weight. Numbness and tingling in your hands or feet. Headache. When you ignore these signs, your blood sugar may keep going up. These problems may get worse, and other problems may begin. HOME CARE Check your blood sugars as told by your doctor. Write down the numbers with the date and time. Take the right amount of insulin or diabetes pills at the right time. Write down the dose with date and time. Refill your insulin or diabetes pills before running out. Watch what you eat. Follow your meal plan. Drink liquids without sugar, such as water. Check with your doctor if you have kidney or heart disease. Follow your doctor's orders for exercise. Exercise at the same time of day. Keep your doctor's appointments. GET HELP RIGHT AWAY IF: You have trouble thinking or are confused. You have fast breathing with fruity smelling breath. You pass out (faint). You have 2 to 3 days of high blood sugars and you do not know why. You have chest pain. You are feeling sick to your stomach (nauseous) or throwing up (vomiting ). You have sudden vision changes. MAKE SURE YOU: Understand these instructions. Will watch your condition. Will get help right away if you are not doing well or get worse. This information is not intended to replace advice given to you by your health care provider. Make sure you discuss any questions you have with your health care provider. Document Released: 03/05/2010 Document Revised: 05/29/2015 Document Reviewed: 03/05/2010 [employer] Patient Education 2016 [employer] Breast Cancer, Female Breast cancer is an [...] 08/16/2006 Document Revised: 05/29/2015 Document Reviewed: 07/02/2014 [employer] Patient Education 2016 [employer]. No follow up information was provided. Extracted from: Title: Office Visit Note Author: Lang Morgan MD Date: 07/04/16 Assessment/Plan Abnormal blood sugar This issue was reviewed, appears stable, and current therapy continued except as mentioned. Appropriate lab was reviewed from the most recent appropriate entry and lab was ordered if needed in the [facility]/nursing orders, and follow up recommended generally in 90 days and no later then six months. Breast cancer The patient's issue is nearly or completely resolved. There is no further issues or testing desired by them at this time. Constipation This issue was reviewed, appears stable, and current therapy continued except as mentioned. Appropriate lab was reviewed from the most recent appropriate entry and lab was ordered if needed in the [facility]/nursing orders, and follow up recommended generally in 90 days and no later then six months. Depression Uncontrolled but NO SIs. High cholesterol Restarted her pravachol by report. Osteoporosis This issue was reviewed, appears stable, and current therapy continued except as mentioned. Appropriate lab was reviewed from the most recent appropriate entry and lab was ordered if needed in the [facility]/nursing orders, and follow up recommended generally in 90 days and no later then six months. DXA test results for Ms. Samina Mejia performed on 12/17/2013 The Left femoral neck showed the lowest score of all the areas scanned. The Left femoral neck has a T-score of -2.00 , 74.00% of a young adult. The diagnosis is LOW BONE MASS for this patient. [1] Paranoid schizophrenia, chronic condition Uncontrolled.Refused consult or PV. Refused meds. Her form will NOT be authorized. She is NOT to drive.Vision exam with Dr. Bertha Agee was normal on 06/21/16 however psychiatrically she is not stable to drive at this time.
--- OUTSIDE RECORDS SUMMARY | 2017-06-10 12:31 | External Medical Summary | Referral Summary ---
:1935 Author Organization [facility] Address [address] [place] [address] [place] [address] Care Team Providers Name Role Phone Lang Morgan Primary Care Physician Encounter [facility] Date(s): 09/25/14 - 09/25/14 [facility] [place] [address] Discharge Disposition: 01-Home or Self Care Attending Physician: Lang Morgan MD Admitting Physician: Lang Morgan MD Vital Signs Most recent to oldest [Reference Range]: 1 Blood Pressure [90-140/60-90 mmHg] 120/60 mmHg (09/25/14 9:53 AM) Problem List Condition Effective Dates Status [...] qWeek, # 12 tabs, 1 Refill(s), Pharmacy: [facility], 1 tabs Oral qWeek Start Date: 01/27/15 Status: OrderedMetamucil 1.7 g, Oral, Daily, constipation, 0 Refill(s) Start Date: 10/31/13 Status: OrderedMilk of Magnesia 30 mL, Oral, Bedtime (once a day), as needed for constipation, 0 Refill(s) Start Date: 10/31/13 Status: OrderedPravachol 40 mg oral tablet 40 mg 1 tabs, Oral, Daily, # 90 tabs, 1 Refill(s), Pharmacy: [facility], 1 tabs Oral Daily [...] Refill(s) Start Date: 10/31/13 Status: Ordered Results Hematology Most recent to oldest [Reference Range]: 1 WBC [4.8-10.8 10*3/uL] 7.0 10*3/uL (09/25/14 10:20 AM) RBC [4.00-5.20 10*6/uL] 4.13 10*6/uL (09/25/14 10:20 AM) Hgb [12.0-16.0 gm/dL] 13.0 gm/dL (09/25/14 10:20 AM) Hct [37.0-47.0 %] 39.1 % (09/25/14 10:20 AM) MCV [82.0-99.0 fL] 94.7 fL (09/25/14 10:20 AM) MCH [27.0-32.0 pg] 31.5 pg (09/25/14: AM) MCHC [32.0-36.0 gm/dL] 33.2 gm/dL (09/25/14 10:20 AM) RDW [11.5-14.5 %] 12.4 % (09/25/14 10:20 AM) Platelet [150-400 10*3/uL] 221 10*3/uL (09/25/14 10:20 AM) MPV [8.8-14.8 fL] 10.4 fL (09/25/14 10:20 AM) Immature Granulocytes [0.0-1.0 %] 0.1 % (09/25/14 10:20 AM) Neutrophils [51-75 %] 66 % (09/25/14 10:20 AM) Lymphocytes [20-46 %] 22 % (09/25/14 10:20 AM) Monocytes [4-11 %] 10 % (09/25/14 10:20 AM) Eosinophils [0-4 %] 1 % (09/25/14 10:20 AM) Basophils [0-2 %] 1 % (09/25/14 10:20 AM) Neutro Absolute [1.90-7.00 10*3] 4.62 10*3 (09/25/14 10:20 AM) Lymph Absolute [0.80-3.30 THOUS] 1.57 THOUS (09/25/14 10:20 AM) [place] Absolute [0.30-1.00 THOUS] 0.68 THOUS (09/25/14 10:20 AM) Eos Absolute [0.00-0.50 THOUS] 0.10 THOUS (09/25/14 10:20 AM) Baso Absolute [0.00-0.20 THOUS] 0.05 THOUS (09/25/14 10:20 AM) Chemistry Most recent to oldest [Reference Range]: 1 Sodium Lvl [135-144 mEq/L] 142 mEq/L (09/25/14 10:20 AM) Potassium Lvl [3.5-5.2 mEq/L] 4.2 mEq/L (09/25/14 10:20 AM) Chloride [99-111 mEq/L] 106 mEq/L (09/25/14 10:20 AM) CO2 [22-31 mEq/L] 28 mEq/L (09/25/14 10:20 AM) AGAP [3-20] 8 (09/25/14 10:20 AM) BUN [10-20 mg/dL] 14 mg/dL (09/25/14 10:20 AM) Glucose Lvl [70-99 mg/dL] 86 mg/dL (09/25/14 10:20 AM) Creatinine Lvl [0.57-1.11 mg/dL] 0.81 mg/dL (09/25/14 10:20 AM) eGFR [>60 mL/min] >60 mL/min 1 (09/25/14 10:20 AM) Calcium Lvl [8.9-10.5 mg/dL] 9.5 mg/dL (09/25/14 10:20 AM) Albumin Lvl [3.4-4.8 gm/dL] 4.0 gm/dL (09/25/14 10:20 AM) Total Protein [6.2-8.1 gm/dL] 6.4 gm/dL (09/25/14 10:20 AM) Globulin [1.8-4.0 gm/dL] 2.4 gm/dL (09/25/14 10:20 AM) ALT [0-55 U/L] 18 U/L (09/25/14 10:20 AM) AST [5-34 U/L] 18 U/L (09/25/14 10:20 AM) Alk Phos [40-150 U/L] 63 U/L (09/25/14 10:20 AM) Bili Total [0.2-1.2 mg/dL] 0.4 mg/dL (09/25/14 10:20 AM) Chol [0-199 mg/dL] 172 mg/dL (09/25/14 10:20 AM) Trig [0-149 mg/dL] 225 mg/dL *HI* (5/7/15 10:20 AM) HDL [40-84 mg/dL] 45 mg/dL (09/25/14 10:20 AM) LDL [0-130 mg/dL] 82 mg/dL (09/25/14 10:20 AM) VLDL Cholesterol [0-28 mg/dL] 45 mg/dL *HI* (09/25/14 10:20 AM) Cardiac Risk [0.0-5.0] 3.8 (09/25/14 10:20 AM) TSH with Reflex Free T4 [0.35-4.94] 1.65 (09/25/14 10:20 AM) 1Result Comment: Multiply eGFR results by 1.21 for race.Urinalysis Most recent to oldest [Reference Range]: 1 UA Color Yellow (09/25/14 10:35 AM) UA Appear Clear (09/25/14 10:35 AM) UA pH [5.0-8.0] 8.0 (09/25/14 10:35 AM) UA Leuk Est [Negative] Negative (09/25/14 10:35 AM) UA Nitrite [Negative] Negative (09/25/14 10:35 AM) UA Protein [Negative] Negative (09/25/14 10:35 AM) UA Glucose [Negative] Negative (09/25/14 10:35 AM) UA Ketones [Negative] Negative (09/25/14 10:35 AM) UA Urobilinogen [<1.0 mg/dL] 0.2 mg/dL (09/25/14 10:35 AM) UA Bili [Negative] Negative (09/25/14 10:35 AM) UA Blood [Negative] Negative (09/25/14 10:35 AM) UA Spec Grav [1.003-1.030] 1.006 (09/25/14 10:35 AM) Type Voided (09/25/14 10:35 AM) Immunizations Vaccine Date Refusal Reason tetanus/diphth/pertuss (Tdap) adult/adol 05/20/13 influenza virus vaccine, inactivated 02/24/15 zoster vaccine live1 05/22/14 1Result Comment: [03/02/2015] [facility] Procedures Procedure Date Related Diagnosis [...] Author: Lang Morgan MD Date: Family Medicine Insomnia Insomnia is frequent trouble falling and/or staying asleep. Insomnia can be a buttermilk drier operator problem or a short term problem. Both are common. Insomnia can be a short term problem when the wakefulness is rel ated to a certain stress or worry. skilled nursing insomnia is often related to ongoing stress during waking hours and/or poor sleeping habits. Overtime, sleep deprivation itself can make the problem worse. E very little thing feels more severe because you are overtired and your ability to cope is decreased. CAUSES Stress, anxiety, and depression. Poor sleeping habits. Distractions such as TV in the bedroom. Naps close to bedtime. Engaging in emotionally charged conversations before bed. Technical reading before sleep. Alcohol and other sedatives. They may make the problem worse. They can hurt normal sleep patterns and normal dream activity. Stimulants such as caffeine for several hours prior to bedtime. Pain syndromes and shortness of breath can cause insomnia. Exercise late at night. Changing time zones may cause sleeping problems (jet lag ). It is sometimes helpful to have someone observe your sleeping patterns. They should look for periods of not breathing during the night (sleep apnea ). They should also look to see how long those periods last. If you live alone or observers are uncertain, you can also be observed at a sleep clinic where your sleep patterns will be professionally monitored. Sleep apnea requires a checkup and treatment. Give your caregivers your medical history. Give your caregivers observations your family has made about your sleep. SYMPTOMS Not feeling rested in the morning. Anxiety and restlessness at bedtime. Difficulty falling and staying asleep. TREATMENT Your caregiver may prescribe treatment for an underlying medical disorders. Your caregiver can give advice or help if you are using alcohol or other drugs for self-medication. Treatment of underlyi ng problems will usually eliminate insomnia problems. Medications can be prescribed for short time use. They are generally not recommended for lengthy use. Vnhd-jgn-rqeoaof sleep medicines are not recommended for lengthy use. They can be habit forming. You can promote easier sleeping by making lifestyle changes such as: Using relaxation techniques that help with breathing and reduce muscle tension. Exercising earlier in the day. Changing your diet and the time of your last meal. No night time snacks. Establish a regular time to go to bed. Counseling can help with stressful problems and worry. Soothing music and white noise may be helpful if there are background noises you cannot remove. Stop tedious detailed work at least one hour before bedtime. HOME CARE INSTRUCTIONS Keep a diary. Inform your caregiver about your progress. This includes any medication side effects. See your caregiver regularly. Take note of: Times when you are asleep. Times when you are awake during the night. The quality of your sleep. How you feel the next day. This information will help your caregiver care for you. Get out of bed if you are still awake after 15 minutes. Read or do some quiet activity. Keep the lights down. Wait until you feel sleepy and go back to bed. Keep regular sleeping and waking hours. Avoid naps. Exercise regularly. Avoid distractions at bedtime. Distractions include watching television or engaging in any intense or detailed activity like attempting to balance the household checkbook. Develop a bedtime ritual. Keep a familiar routine of bathing, brushing your teeth, climbing into bed at the same time each night, listening to soothing music. Routines increase the success of falling to sleep faster. Use relaxation techniques. This can be using breathing and muscle tension release routines. It can also include visualizing peaceful scenes. You can also help control troubling or intruding thought s by keeping your mind occupied with boring or repetitive thoughts like the old concept of counting sheep. You can make it more creative like imagining planting one beautiful flower after another in your backyard garden. During your day, work to eliminate stress. When this is not possible use some of the previous suggestions to help reduce the anxiety that accompanies stressful situations. MAKE SURE YOU: Understand these instructions. Will watch your condition. Will get help right away if you are not doing well or get worse. Document Released: 05/05/2001 Document Revised: 07/30/2012 Document Reviewed: 06/04/2008 [facility] Patient Information 2014 [employer] [facility]. No follow up information was provided. Extracted from: Title: Office Visit Note Author: Lang Morgan MD Date: 09/25/14 Assessment/Plan Abnormal blood sugar This issue is stable and appropriate refills, lab, and f /u have been discussed. Lab pending. Breast cancer This issue is stable and appropriate refills, lab, and f/u have been discussed. Sees Dr. Matson. Note reviewed from 07/2014. Depression This issue is stable and appropriate refills, lab, and f/u have been discussed. History for Hypercholesterolemia without hypertriglyceridemia This issue is stable and appropriate refills, lab, and f/u have been discussed. Lab pending. Insomnia This issue is stable and appropriate refills, lab, and f/u have been discussed. Schizophrenia This issue is stable and appropriate refills, lab, and f/u have been discussed. Seeluly NELSON
--- OUTSIDE RECORDS SUMMARY | 2017-06-10 12:31 | External Medical Summary | Referral Summary ---
:1935 Author Organization [facility] Address [address] [place] [address] Care Team Providers Name Role Phone Lang Morgan Primary Care Physician Encounter [facility] [id number] Date(s): 02/25/15 - 02/25/15 [facility] [address] [place] [address]- [place] Discharge Diagnosis: Seborrheic keratosis, [...] qWeek, # 12 tabs, 1 Refill(s), Pharmacy: [facility], 1 tabs Oral qWeek Start Date: 01/27/15 Status: OrderedMetamucil 1.7 g, Oral, Daily, constipation, 0 Refill(s) Start Date: 10/31/13 Status: OrderedMilk of Magnesia 30 mL, Oral, Bedtime (once a day), as needed for constipation, 0 Refill(s) Start Date: 10/31/13 Status: OrderedPravachol 40 mg oral tablet 40 mg 1 tabs, Oral, Daily, # 90 tabs, 1 Refill(s), Pharmacy: [facility], 1 tabs Oral Daily [...]
--- OUTSIDE RECORDS SUMMARY | 2017-06-10 12:31 | External Medical Summary | Referral Summary ---
:1935 Author Organization [facility] Address [address] [place] [address] Care Team Providers Name Role Phone Lang Morgan Primary Care Physician Encounter [facility] [id number] Date(s): 02/25/15 - 02/25/15 [facility] [address] [place] [address] [place] Discharge Diagnosis: Seborrheic keratosis, [...] WEEK, # 12 tabs, 1 Refill(s), eRx: [facility], TAKE 1 TABLET EVERY WEEK Start Date: 06/01/15 Status: Orderedloratadine 10 mg, Oral, Daily, 0 Refill(s) Start Date: 07/16/15 Status: OrderedMetamucil 1.7 g, Oral, Daily, constipation, 0 Refill(s) Start Date: 10/31/13 Status: OrderedMilk of Magnesia 30 mL, Oral, Bedtime (once a day), as needed for constipation, 0 Refill(s) Start Date: 10/31/13 Status: OrderedOLANZapine 10 mg oral tablet 20 mg 2 tabs, Oral, Daily, 0 Refill(s) Start Date: 07/16/15 Status: OrderedPravachol 40 mg oral tablet See Instructions, TAKE 1 TABLET EVERY DAY, # 90 tabs, 1 Refill(s), eRx: [facility], TAKE 1 TABLET EVERY DAY Start Date: 06/30/15 Status: OrderedSenna S 1 tabs, Oral, Bedtime (once a day), Constipation, 0 Refill(s) Start Date: 10/31/13 Status: OrderedVitamin C 500 mg, Oral, Daily, 0 Refill(s) Start Date: 10/31/13 Status: Orderedvitamin E 400 Intl_Units, Oral, Daily, 0 Refill(s) Start Date: 10/31/13 Status: Ordered Results No data available for this section Immunizations Vaccine Date Refusal Reason tetanus/diphth/pertuss (Tdap) adult/adol 05/20/13 influenza virus vaccine, inactivated 02/24/15 pneumococcal 23-polyvalent vaccine1 07/04/15 zoster vaccine live2 05/22/14 1Location History: given at [facility] Comment: [03/02/2015] [facility] Procedures Procedure Date Related Diagnosis Body [...]
--- OUTSIDE RECORDS SUMMARY | 2017-06-10 12:31 | External Medical Summary | Referral Summary ---
:1935 Author Organization [facility] Address [address] [place] [address] Care Team Providers Name Role Phone Lang Morgan Primary Care Physician Encounter VC [facility] [id number] Date(s): 02/25/15 - 02/25/15 [facility] [address] [place] [address] [place] Discharge Diagnosis: Seborrheic keratosis, [...] qWeek, # 12 tabs, 1 Refill(s), Pharmacy: [facility], 1 tabs Oral qWeek Start Date: 01/27/15 Status: OrderedMetamucil 1.7 g, Oral, Daily, constipation, 0 Refill(s) Start Date: 10/31/13 Status: OrderedMilk of Magnesia 30 mL, Oral, Bedtime (once a day), as needed for constipation, 0 Refill(s) Start Date: 10/31/13 Status: OrderedPravachol 40 mg oral tablet 40 mg 1 tabs, Oral, Daily, # 90 tabs, 1 Refill(s), Pharmacy: [facility], 1 tabs Oral Daily [...]
--- OUTSIDE RECORDS SUMMARY | 2017-06-10 12:31 | External Medical Summary | Continuity of Care Document ---
:1935 Author Organization Via [facility] Allergies There is no data. Medications There is no data. Problems There is no data. Procedures There is no data. Results There is no data. Encounters ACCT No. Visit Discharge Status Pt. Type Provider Facility Loc./Unit Complaint Date/Time [id number] 08/08/2013 08/08/2013 [facility] Outpatient 14:12:00 23:59:59 [id number] 03/13/2013 03/13/2013 [facility] Outpatient 13:51:00 23:59:59
--- OUTSIDE RECORDS SUMMARY | 2017-06-10 12:31 | External Medical Summary | Referral Summary ---
:1935 Author Organization [facility] Address [address] [place] [address] [place] [address] Care Team Providers Name Role Phone Lang Morgan Primary Care Physician Encounter [facility] Date(s): 03/26/15 - 03/26/15 [facility] [place] [address] [place] Discharge Disposition: 01-Home or Self Care Attending Physician: Lang Morgan MD Admitting Physician: Lang Morgan MD Vital Signs Most recent to oldest [Reference Range]: 1 Blood Pressure [90-140/60-90 mmHg] 120/80 mmHg (03/26/15 3:11 PM) Problem List Condition Effective Dates Status Health [...] # 12 tabs, 1 Refill(s), Pharmacy: [facility], 1 tabs Oral qWeek Start Date: 01/27/15 Status: OrderedMetamucil 1.7 g, Oral, Daily, constipation, 0 Refill(s) Start Date: 10/31/13 Status: OrderedMilk of Magnesia 30 mL, Oral, Bedtime (once a day), as needed for constipation, 0 Refill(s) Start Date: 10/31/13 Status: OrderedPravachol 40 mg oral tablet 40 mg 1 tabs, Oral, Daily, # 90 tabs, 1 Refill(s), Pharmacy: [facility] Mail [facility], 1 tabs Oral [...] oldest [Reference Range]: 1 WBC [4.8-10.8 10*3/uL] 7.9 10*3/uL (03/26/15 3:47 PM) RBC [4.00-5.20] 3.99 *LOW* (03/26/15 3:47 PM) Hgb [12.0-16.0 gm/dL] 12.4 gm/dL (03/26/15 3:47 PM) Hct [37.0-47.0 %] 36.5 % *LOW* (03/26/15 3:47 PM) MCV [82.0-99.0 fL] 91.5 fL (03/26/15 3:47 PM) MCH [27.0-32.0 pg] 31.1 pg (03/26/15 3:47 PM) MCHC [32.0-36.0 gm/dL] 34.0 gm/dL (03/26/15 3:47 PM) RDW [11.5-14.5 %] 12.8 % (03/26/15 3:47 PM) Platelet [150-400 10*3/uL] 222 10*3/uL (03/26/15 3:47 PM) MPV [8.8-14.8 fL] 9.9 fL (03/26/15 3:47 PM) Immature Granulocytes [0.0-1.0 %] 0.3 % (03/26/15 3:47 PM) Neutrophils [51-75 %] 64 % (03/26/15 3:47 PM) Lymphocytes [20-46 %] 23 % (03/26/15 3:47 PM) Monocytes [4-11 %] 10 % (03/26/15 3:47 PM) Eosinophils [0-4 %] 1 % (03/26/15 3:47 PM) Basophils [0-2 %] 1 % (03/26/15 3:47 PM) Neutro Absolute [1.90-7.00 10*3] 5.08 10*3 (03/26/15 3:47 PM) Lymph Absolute [0.80-3.30 10*3] 1.85 10*3 (03/26/15 3:47 PM) [place] Absolute [0.30-1.00 10*3] 0.78 10*3 (03/26/15 3:47 PM) Eos Absolute [0.00-0.50 10*3] 0.11 10*3 (03/26/15 3:47 PM) Baso Absolute [0.00-0.20 10*3] 0.05 10*3 (03/26/15 3:47 PM) Chemistry Most recent to oldest [Reference Range]: 1 Sodium Lvl [135-144 mEq/L] 139 mEq/L (03/26/15 3:47 PM) Potassium Lvl [3.5-5.2 mEq/L] 4.1 mEq/L (03/26/15 3:47 PM) Chloride [99-111 mEq/L] 103 mEq/L (03/26/15 3:47 PM) CO2 [22-31 mEq/L] 28 mEq/L (03/26/15 3:47 PM) AGAP [3-20] 8 (03/26/15 3:47 PM) BUN [10-20 mg/dL] 13 mg/dL (03/26/15 3:47 PM) Glucose Lvl [70-99 mg/dL] 96 mg/dL (03/26/15 3:47 PM) Creatinine Lvl [0.57-1.11 mg/dL] 0.84 mg/dL (03/26/15 3:47 PM) eGFR [>60 mL/min] >60 mL/min 1 (03/26/15 3:47 PM) Calcium Lvl [8.9-10.5 mg/dL] 9.6 mg/dL (03/26/15 3:47 PM) Albumin Lvl [3.4-4.8 gm/dL] 4.0 gm/dL (03/26/15 3:47 PM) Total Protein [6.2-8.1 gm/dL] 6.5 gm/dL (03/26/15 3:47 PM) Globulin [1.8-4.0 gm/dL] 2.5 gm/dL (03/26/15 3:47 PM) ALT [0-55 U/L] 12 U/L (03/26/15 3:47 PM) AST [5-34 U/L] 19 U/L (03/26/15 3:47 PM) Alk Phos [40-150 U/L] 52 U/L (03/26/15 3:47 PM) Bili Total [0.2-1.2 mg/dL] 0.3 mg/dL (03/26/15 3:47 PM) Chol [0-199 mg/dL] 202 mg/dL *HI* (03/26/15 3:47 PM) Trig [0-149 mg/dL] 193 mg/dL *HI* (03/26/15 3:47 PM) HDL [40-84 mg/dL] 43 mg/dL (03/26/15 3:47 PM) LDL [0-130 mg/dL] 120 mg/dL (03/26/15 3:47 PM) VLDL Cholesterol [0-28 mg/dL] 39 mg/dL *HI* (03/26/15 3:47 PM) Cardiac Risk [0.0-5.0] 4.7 (03/26/15 3:47 PM) TSH with Reflex Free T4 [0.35-4.94] 3.14 (03/26/15 3:47 PM) 1Result Comment: Multiply eGFR results by 1.21 for race. Immunizations Vaccine Date Refusal Reason tetanus/diphth/pertuss (Tdap) [...] Morgan MD Date: Obstetrics and Gynecology Breast Cancer Breast cancer is an abnormal growth of [...] chest pain or trouble breathing. You faint. Document Released: 08/16/2006 Document Revised: 09/22/2014 Document Reviewed: 07/02/2014 [facility] Patient Information 2015 [facility]. This information is not intended to replace advice given to you by your health care provider. Make sure you discuss any questions you have with your health care provider. No follow up information was provided. Extracted from: Title: Office Visit Note Author: Lang Morgan MD Date: 03/26/15 Assessment/Plan Abnormal blood sugar This issue was reviewed, appears stable, and current therapy continued except as mentioned. Appropriate lab was reviewed from the most recent appropriate entry and lab was order ed if needed in the cpoe/nursing orders, and follow up arranged. Lab pending. Breast cancer The patient's issue is nearly or completely resolved. There is no further issues or testing desired by them at this time. Not a candidate for HRT due to past cancer. Discussed and declines other meds. High cholesterol This issue was reviewed, appears stable, and current therapy continued except as mentioned. Appropriate lab was reviewed from the most recent appropriate entry and lab was ordered i f needed in the cpoe/nursing orders, and follow up arranged. Lab pending due to uncertainty on her taking her meds. Schizophrenia Contacted Dr. Mancera's office, the patient's psychiatrist. Consider reporting to [facility] contingent on psychiatry report. Encouraged not to drive until cleared. 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
--- OUTSIDE RECORDS SUMMARY | 2017-06-10 12:31 | External Medical Summary | Referral Summary ---
:1935 Author Organization [facility] Address [address] [place] [address] Care Team Providers Name Role Phone Lang Morgan Primary Care Physician Encounter [facility] [id number] Date(s): 02/25/15 - 02/25/15 [facility] [address] [place] [address]- [place] Discharge Diagnosis: Seborrheic keratosis, [...] qWeek, # 12 tabs, 1 Refill(s), Pharmacy: [facility], 1 tabs Oral qWeek Start Date: 01/27/15 Status: OrderedMetamucil 1.7 g, Oral, Daily, constipation, 0 Refill(s) Start Date: 10/31/13 Status: OrderedMilk of Magnesia 30 mL, Oral, Bedtime (once a day), as needed for constipation, 0 Refill(s) Start Date: 10/31/13 Status: OrderedPravachol 40 mg oral tablet 40 mg 1 tabs, Oral, Daily, # 90 tabs, 1 Refill(s), Pharmacy: [facility], 1 tabs Oral Daily [...]
--- OUTSIDE RECORDS SUMMARY | 2017-06-10 12:31 | External Medical Summary | Referral Summary ---
:1935 Author Organization [facility] Address [address] [place] [address] Care Team Providers Name Role Phone Lang Morgan Primary Care Physician Encounter VC [facility] [id number] Date(s): 02/25/15 - 02/25/15 [facility] [address] [place] [address] [place] Discharge Diagnosis: Seborrheic keratosis, [...] qWeek, # 12 tabs, 1 Refill(s), Pharmacy: [facility], 1 tabs Oral qWeek Start Date: 01/27/15 Status: OrderedMetamucil 1.7 g, Oral, Daily, constipation, 0 Refill(s) Start Date: 10/31/13 Status: OrderedMilk of Magnesia 30 mL, Oral, Bedtime (once a day), as needed for constipation, 0 Refill(s) Start Date: 10/31/13 Status: OrderedPravachol 40 mg oral tablet 40 mg 1 tabs, Oral, Daily, # 90 tabs, 1 Refill(s), Pharmacy: [facility], 1 tabs Oral Daily [...]
--- OUTSIDE RECORDS SUMMARY | 2017-06-10 12:31 | External Medical Summary | Referral Summary ---
:1935 Author Organization [facility] Address [address] [place] [address] Care Team Providers Name Role Phone Lang Morgan Primary Care Physician Encounter VC [facility] [id number] Date(s): 02/25/15 - 02/25/15 [facility] [address] [place] [address] [place] Discharge Diagnosis: Seborrheic keratosis, [...] qWeek, # 12 tabs, 1 Refill(s), Pharmacy: [facility], 1 tabs Oral qWeek Start Date: 01/27/15 Status: OrderedMetamucil 1.7 g, Oral, Daily, constipation, 0 Refill(s) Start Date: 10/31/13 Status: OrderedMilk of Magnesia 30 mL, Oral, Bedtime (once a day), as needed for constipation, 0 Refill(s) Start Date: 10/31/13 Status: OrderedPravachol 40 mg oral tablet 40 mg 1 tabs, Oral, Daily, # 90 tabs, 1 Refill(s), Pharmacy: [facility], 1 tabs Oral Daily [...]
--- OUTSIDE RECORDS SUMMARY | 2017-06-10 12:31 | External Medical Summary | Referral Summary ---
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 Discharge Diagnosis: Seborrheic keratosis Discharge Diagnosis: Seborrheic keratosis, inflamed Discharge Diagnosis: History of basal cell carcinoma Discharge Disposition: 01-Home or Self Care Attending [...] WEEK, # 12 tabs, 1 Refill(s), eRx: [facility], TAKE 1 TABLET EVERY WEEK Start Date: 06/01/15 Status: OrderedMetamucil 1.7 g, Oral, Daily, constipation, 0 Refill(s) Start Date: 10/31/13 Status: OrderedMilk of Magnesia 30 mL, Oral, Bedtime (once a day), as needed for constipation, 0 Refill(s) Start Date: 10/31/13 Status: Orderedpravastatin 40 mg oral tablet See Instructions, TAKE 1 TABLET EVERY DAY, # 90 tabs, eRx: [facility], TAKE 1 TABLET EVERY [...] vaccine live2 05/22/14 1Location History: given at [address] Comment: [03/02/2015] [facility] Procedures Procedure Date Related Diagnosis Body Site Destruction (eg, laser surgery, electrosurgery, 03/30/16 cryosurgery, chemosurgery, surgical curettement), premalignant lesions (eg, actinic keratoses); first lesion Colonoscopy 2012 Knee replacement-right 10/12/09 Insertion of Venous access device maintenance 04/21/08 with SQ resev. Rt Mastectomy with sentinel node 03/21/08 Knee replacement-left 03/27/06 Appendectomy 1956 Tonsillectomy 1956 Cataract extraction Hysterectomy Social History Social History Type Response Smoking Status Never smoker Assessment and Plan Extracted from: Title: Office Visit Note Author: Jimi Caballero MD Date: 03/30/16 Assessment/Plan Capillary hemangioma History of basal cell carcinoma Seborrheic keratosis Seborrheic keratosis, inflamed Solar degeneration
--- OUTSIDE RECORDS SUMMARY | 2017-06-10 12:31 | External Medical Summary | Referral Summary ---
:1935 Author Organization [facility] Address [address] [place] [address] [place] [id number] Care Team Providers Name Role Phone Lang Morgan Primary Care Physician Encounter [facility] Date(s): 07/28/15 - 07/28/15 [facility] [place] [address] Discharge Disposition: 01-Home or Self Care Attending Physician: Lang Morgan MD Admitting Physician: Lang Morgan MD Vital Signs Most recent to oldest [Reference Range]: 1 Blood Pressure [90-140/60-90 mmHg] 98/60 mmHg (07/28/15 10:53 AM) Problem List Condition Effective Dates Status [...] DAY, # 90 tabs, 1 Refill(s), eRx: [facility], TAKE 1 TABLET EVERY [...] vaccine live2 05/22/14 1Location History: given at [address] Comment: [03/02/2015] [facility] Procedures Procedure Date Related Diagnosis [...] Author: Lang Morgan MD Date: Family Medicine Cholesterol Cholesterol is a white, waxy, fat-like substance needed by your body in small amounts. The liver makes all the cholesterol you need. Cholesterol is carried from the liver by the blood through the blood vessels. Deposits of cholesterol (plaque) may build up on blood vessel sales. These make the arteries narrower and stiffer. Cholesterol plaques increase the risk for heart attack and stroke. You cannot feel your cholesterol level even if it is very high. The only way to know it is high is with a blood test. Once you know your cholesterol levels, you should keep a record of the test results. Work with your health care provider to keep your levels in the desired range. WHAT DO THE RESULTS MEAN? Total cholesterol is a rough measure of all the cholesterol in your blood. LDL is the so-called bad cholesterol. This is the type that deposits cholesterol in the sales of the arteries. You want this level to be low. HDL is the good cholesterol because it cleans the arteries and carries the LDL away. You want this level to be high. Triglycerides are fat that the body can either burn for energy or store. High levels are closely linked to heart disease. WHAT ARE THE DESIRED LEVELS OF CHOLESTEROL? Total cholesterol below 200. LDL below 100 for people at risk, below 70 for those at very high risk. HDL above 50 is good, above 60 is best. Triglycerides below 150. HOW CAN I LOWER MY CHOLESTEROL? Diet. Follow your diet programs as directed by your health care provider. Choose fish or white meat chicken and turkey, roasted or baked. Limit fatty cuts of red meat, fried foods, and processed meats, such as sausage and lunch meats. Eat lots of fresh fruits and vegetables. Choose whole grains, beans, pasta, potatoes, and cereals. Use only small amounts of olive, corn, or canola oils. Avoid butter, mayonnaise, shortening, or palm kernel oils. Avoid foods with trans fats. Drink skim or nonfat milk and eat low-fat or nonfat yogurt and cheeses. Avoid whole milk, cream, ice cream, egg yolks, and full-fat cheeses. Healthy desserts include vidal food cake, cici snaps, animal crackers , hard candy, popsicles, and low-fat or nonfat frozen yogurt. Avoid pastries, cakes, pies, and cookies. Exercise. Follow your exercise programs as directed by your health care provider. A regular program helps decrease LDL and raise HDL. A regular program helps with weight control. Do things that increase your activity level like gardening, walking, or taking the stairs. Ask your health care provider about how you can be more active in your daily life. Medicine. Take medicine only as directed by your health care provider. Medicine may be prescribed by your health care provider to help lower cholesterol and decrease the risk for heart disease. If you have several risk factors, you may need medicine even if your levels are normal. This information is not intended to replace advice given to you by your health care provider. Make sure you discuss any questions you have with your health care provider. Document Released: 01/31/2002 Document Revised: 09/22/2014 Document Reviewed: 02/19/2014 [employer] Patient Information 2015 [employer]. No follow up information was provided. Extracted from: Title: Office Visit Note Author: Lang Morgan MD Date: 07/28/15 Assessment/Plan Abnormal blood sugar This issue was reviewed, appears stable, and current therapy continued except as mentioned. Appropriate lab was reviewed from the most recent appropriate entry and lab was order ed if needed in the cpoe/nursing orders, and follow up recommended generally in 90 days and no later then six months. Lab from [facility] 07/02 was normal. Blood sugar was 108. Breast cancer The patient's issue is nearly or completely resolved. There is no further issues or testing desired by them at this time. High cholesterol This issue was reviewed, appears stable, and current therapy continued except as mentioned. Appropriate lab was reviewed from the most recent appropriate entry and lab was ordered i f needed in the cpoe/nursing orders, and follow up recommended generally in 90 days and no later then six months. Lab stable. Paranoid schizophrenia, chronic condition This issue was reviewed, appears stable, and current therapy continued except as mentioned. Appropriate lab was reviewed from the most recent appropriate en try and lab was ordered if needed in the cpoe/nursing orders, and follow up recommended generally in 90 days and no later then six months. CT head from [facility] 07/02/15 was normal. Taking meds and has appt for f/u pending with Dr. Mancera. She is NOT to drive. Will try to report to [facility]. Recheck appt pending here in 30 days.
--- NOTE | 2017-06-10 13:35 | CT Scan Report ---
Indication: fall with ms changes PROCEDURE: CT head/brain wo con: Encounter: Initial Comparison: None. FINDINGS: There is mild prominence of the ventricles and sulci compatible with cortical atrophy. There is no mass, mass effect, or midline shift. No evidence for intracranial hemorrhage. No intra or extra-axial fluid collections. No evidence for depressed skull fracture. The included portions of the sinuses are clear. There is a minimally displaced right nasal a low fracture. IMPRESSION: Mild cortical atrophy. No evidence for acute cortical infarct, intracranial hemorrhage, or mass. Preliminary report was provided by Ghanshyam campbell .
--- NOTE | 2017-06-10 13:49 | Emergency Department Report ---
Fall HPI - General Chief Complaint: Fall Stated Complaint: fall Time Seen by Provider: 06/10/17 12:03 - History of Present Illness HPI Narrative: 81-year-old female with head trauma. Patient was walking on the sidewalk and tripped on a crack that was elevated. No loss of consciousness. She fell face forward and struck the cement unprotected, striking her nose. She had a nosebleed for several minutes which resolved spontaneously. She denies any neck pain or numbness tingling into her arms or hands. No nausea or vomiting. No changes in vision. She was brought by EMS for evaluation. She lives alone, has no family nearby. She has no significant health history, takes vitamins and an occasional aspirin only. No tobacco or alcohol use. - Related Data Home Medications Medication Instructions Recorded Confirmed Ascorbate Calcium [Vitamin C] 500 mg PO DAILY 06/10/17 06/10/17 Beta-Carotene [Beta Carotene] 25,000 unit PO DAILY 06/10/17 06/10/17 Calcium Carbonate 600 mg PO DAILY 06/10/17 06/10/17 Maltodextrin [Latia Carb] 1 dose PO DAILY 06/10/17 06/10/17 Senna + Docusate [Senna Plus 1 tab PO DAILY PRN 06/10/17 06/10/17 Tablet] Vitamin D 1 tab PO DAILY 06/10/17 06/10/17 Vitamin E [Vitamin E] 400 unit PO DAILY 06/10/17 06/10/17 Allergies Allergy/AdvReac Type Severity Reaction Status Date / Time No Known Drug Allergies Allergy Unknown Verified 06/10/17 12:40 Review of Systems All systems: reviewed and negative except as stated PFSH Negative - Social History Smoking status: Never smoker Substance use type: does not use Physical Exam - Limitations Limitations: no limitations - General General appearance: alert - Normal Exams: Eyes:: Pupils are PERRLA w/ EOMI, No scleral icterus, irritation, or foreign bodies noted Neck:: Full range of motion, without adenopathy, JVD, bruits or thyromegaly Chest/Respirations:: Clear all massey, with good airflow, and symmetry bilaterally Cardiovascular:: Regular rate and rhythm, without murmur or gallop, Pulses 2+ all extremities, capillary refill, <2 seconds all extremities Abdomen:: Bowel sounds positive, soft, non-tender, non-distended, no hepatosplenomegaly, masses or bruits noted Neurological:: Patient is alert, cranial nerves, motor/sensory/cerebellar, exams w/o gross deficits, to observation Psychiatric:: Patient exhibits, appropriate attention, emotion and affect - Head Head exam: other (patient has dried blood in both nostrils with some bruising and swelling on the bridge of the nose.) - Neurological Exam Neurological exam: Present: alert, CN II-XII intact, reflexes normal, other ( initially on arrival, patient was speaking normally and coherently. However fairly rapidly, she began to stutter and have difficulty with concentration. She did not slur her words, but had difficulty coming up with the appropriate word, could not remember names of streets she normally was on.). Absent: motor sensory deficit Course Vital Signs Temperature 98 F 06/10/17 11:45 Pulse Rate 68 06/10/17 11:45 Respiratory Rate 16 06/10/17 11:45 Blood Pressure 143/75 H 06/10/17 11:45 Pulse Oximetry 98 06/10/17 11:45 Temperature 98 F 06/10/17 11:45 Pulse Rate 59 L 06/10/17 13:15 Respiratory Rate 19 06/10/17 13:15 Blood Pressure 133/62 06/10/17 13:15 Pulse Oximetry 95 06/10/17 13:15 Fall - [facility] Narrative Medical decision making narrative: Because of mental status changes, head CT was obtained, nasal fracture mildly displaced was noted. No intracranial bleeding or damage was noted. CBC ordered as well as CMP, both returned appropriate. Patient definitely showed issues with concussion and was unable to complete the Mini-Mental Status exam. Unable to remember one of 3 objects at 1 minute, unable to appropriately draw a clock face with numbers or to appropriately but the hands onto a specific time. She could not count backwards and could not spelled backwards. Had difficulty explaining what she would do with an envelope that she found on the ground, kept calling it a sidewalk and talking about giving a sidewalk away. I spoke with trauma surgery at [place] and explained patient's situation. His recommendation was that we watch her here as there was no neurosurgical intervention that needed to be done at this time. I spoke with the hospitalist who agreed. Patient does need to be observed due to both postconcussive symptoms and an inability to take care of herself on her own tonight as she has no social support. She will be admitted observation with frequent neuro checks. - Differential Diagnosis Likely: syncope, concussion with loss of consciousness, concussion without loss of consciousness - Medical Records Attestation: I reviewed the patient's medical records. - Lab Data Attestation: I reviewed the patient's lab results. Result diagrams: 06/10/17 12:42 06/10/17 12:42 Lab Results 06/10/17 06/10/17 Range/Units 12:42 12:42 WBC 8.4 (4.5-11.0) T/MM3 RBC 4.03 (4.00-5.20) M/MM3 Hgb 12.6 (12-16) GM/DL Hct 38.7 (36-46) % MCV 96.0 (80-100) UM3 MCH 31.3 (26-34) UUG MCHC 32.6 (31-37) GM/DL RDW Std Deviation 43.3 (36.9-50.2) FL Plt Count 206 (130-400) T/MM3 MPV 9.7 (9.4-12.4) UM3 Immature Gran % (Auto) 0.2 (0.0-0.5) % Neut % (Auto) 76.0 H (33-66) % Lymph % (Auto) 15.9 L (23-45) % Hart % (Auto) 6.2 (0-9.0) % Eos % (Auto) 1.1 (0-4) % Baso % (Auto) 0.6 (0-2) % Neut # (Auto) 6.3 (1.8-7.7) T/MM3 Lymph # (Auto) 1.3 (1-4.8) T/MM3 Hart # (Auto) 0.5 (0-0.8) T/MM3 Eos # (Auto) 0.1 (0-0.5) T/MM3 Baso # (Auto) 0.1 (0-0.2) T/MM3 Abs Immat Gran (auto) 0.02 (0.00-0.03) T/MM3 Turbidity < 20 (0-20) Sodium 141 (134-144) MEQ/L Potassium 3.8 (3.6-5) MEQ/L Chloride 103 (98-107) MEQ/L Carbon Dioxide 30 (22-30) MEQ/L Anion Gap 8 (5-15) MEQ/L BUN 22.0 H (7-17) MG/DL Creatinine 0.9 (0.7-1.2) MG/DL GFR Calculation 60 BUN/Creatinine Ratio 24 (6-26) RATIO Glucose 97 (65-110) MG/DL Calculated Osmolality 274 (261-280) MOSM/KG Calcium 9.7 (8.4-10.2) MG/DL Total Bilirubin 0.40 (0.20-1.30) MG/DL Icterus Index < 2 (0-7) AST 23 (14-36) U/L ALT 20 (9-52) U/L Alkaline Phosphatase 58 (38-126) U/L Total Protein 7.7 (6.3-8.2) G/DL Albumin 4.3 (3.5-5.0) G/DL Globulin 3.4 (2.4-3.6) G/DL Albumin/Globulin Ratio 1.3 (1.1-2.2) RATIO Specimen Hemolysis < 15 (0-25) - Radiology Data Attestation: I reviewed the patient's radiology results. Disposition Clinical Impression: Concussion without loss of consciousness, Nasal fracture, Mental status change Disposition: 02 To [facility] Condition: Stable Prescriptions: No Action Vitamin E [Vitamin E] 400 unit PO DAILY Senna + Docusate [Senna Plus Tablet] 1 tab PO DAILY PRN PRN Reason: Constipation Maltodextrin [Latia Carb] 1 dose PO DAILY Calcium Carbonate 600 mg PO DAILY Beta-Carotene [Beta Carotene] 25,000 unit PO DAILY Ascorbate Calcium [Vitamin C] 500 mg PO DAILY Vitamin D 1 tab PO DAILY Referrals: Lang Morgan MD [Family Provider] - Time of Disposition: 13:56 - Seen By: physician
[2017-06-10 15:09] VITALS: BMI 22.7
[2017-06-10] MEDS ORDERED: SENNA + DOCUSATE TABLET PO PRN (15:44)
[2017-06-10] MEDS ORDERED: ACETAMINOPHEN 325 MG TABLET PO PRN (15:52)
[2017-06-10] MEDS ORDERED: ACETAMINOPHEN 500 MG TABLET PO PRN (15:52)
[2017-06-10] MEDS ORDERED: ONDANSETRON 4 MG/2 ML INJECTION IVP PRN (15:52)
--- NOTE | 2017-06-10 16:33 | History & Physical Report ---
History of Present Illness Date: 06/10/17 Chief complaint: altered mental status, closed head injury, facial fracture HPI: Yuliana Smith is a pleasant 81-year-old female patient who presented to [facility] [place] [place] ED via EMS today, 06/10/17, after falling. She reports that she was walking to [employer] today around lunch time to get her flu shot and tripped on the side walk. She denies any proceeding symptoms including no chest pain, shortness of breath , abdominal pain, nausea, vomiting or dysuria. She denies any recent illness, fevers, chills, cough or congestion. She admits to a history of occasional dizziness which she treats successfully by drinking gatorade but denies any dizziness, lightheadedness or syncope today. Upon falling, she hit her head and face resulting in significant nasal bleeding. She was transported to [facility] [place] [place] ED for further evaluation. While in the ED, labs were obtained and unremarkable. CT head revealed no acute intracranial abnormalities or hemorrhage. Clinical exam is highly suspicious for nasal fracture and bleeding stopped prior to arrival. While in the ED, she was noted to have some initial confusion and altered mental status. Dr. Desouza was consulted and accepted the patient into observation status for further evaluation and close neurologic monitoring. On exam, she is seen resting in bed in her room, watching TV. She is alert and orientated x 3 and is able to recall all events of the day. She denies any current complaints or concerns and asks about being able to eat because she is hungry. Prior medication list was reviewed and she admits that she has had to limit her medications due to finances. She has a history of schizophrenia and possible borderline personality but is not currently on any medications because she feels better without them. She denies any hallucinations and no SI or HI. She has previously seen Dr. Mancera for psychiatric care. Review of Systems All systems PM: 10-point ROS was reviewed, no additional remarkable complaints except - Constitutional Constitutional: Absent: chills, fatigue, fever(s), headache(s), weakness - EENMT Eyes: Absent: blurry vision, change in vision, diplopia, photophobia Ears: Absent: ear pain Balance: Absent: falling to one side Nose: Present: nosebleeds (resolved), allergies, other (nasal deformity) Mouth/Throat: Absent: sore throat, changes in swallowing, bleeding gums, loose teeth, dry mouth - Cardiovascular Cardiovascular: Absent: chest pain, palpitations, syncope, dyspnea on exertion, orthopnea, edema Rhythm: Present: regular rhythm Vascular: Absent: pallor of an extermity, pedal edema - Respiratory Respiratory: Absent: cough, dyspnea, dyspnea on exertion, wheezing, pain on inspiration - Gastrointestinal Gastrointestinal: Absent: abdominal pain, constipation, diarrhea, nausea, vomiting - Genitourinary Genitourinary: Absent: dysuria, flank pain, hematuria Menstruation: post hysterectomy - Musculoskeletal Musculoskeletal: Absent: abnormal gait, back pain, deformity, muscle weakness - Integumentary/Breasts Integumentary: Present: swelling (right eye brow). Absent: rash - Neurological Neurological: Absent: abnormal gait, abnormal speech, confusion, convulsions, dizziness, focal weakness, headache(s), memory loss, weakness - Psychiatric Psychiatric: Absent: anxiety, behavioral changes, depression, hallucinations - Endocrine Endocrine: Absent: heat intolerance, palpitations - Hematologic/Lymphatic Hematologic/Lymphatic: Absent: easy bruising - Allergic/Immunologic Allergic/Immunologic: Present: seasonal rhinorrhea Past Medical History Medical History Updates: Delusional disorder. Schizophrenia. Borderline personality disorder. Constipation. Hyperlipidemia. Osteoporosis. History of breast cancer. Hypertension. Seasonal allergies. Surgical History: Hysterectomy. Tonsillectomy. Right mastectomy. Bilateral knee repair. Family History Updates: Patient reports being estranged from family and family history is unknown. - Social History Smoking status: Never smoker Substance use type: does not use Alcohol intake frequency: does not drink Housing: apartment Household members: none Current occupational status: employed Does patient use chewing tobacco?: No Current residence: Apartment/Private Home Social history: PCP - Dr. Morgan. Psych - Dr. Mg Medications Home Medications Medication Instructions Recorded Confirmed Type Ascorbate Calcium [Vitamin C] 500 mg PO DAILY 06/10/17 06/10/17 History Beta-Carotene [Beta Carotene] 25,000 unit PO DAILY 06/10/17 06/10/17 History Calcium Carbonate 600 mg PO DAILY 06/10/17 06/10/17 History Maltodextrin [Latia Carb] 1 dose PO DAILY 06/10/17 06/10/17 History Senna + Docusate [Senna Plus 1 tab PO DAILY PRN 06/10/17 06/10/17 History Tablet] Vitamin D 1 tab PO DAILY 06/10/17 06/10/17 History Vitamin E [Vitamin E] 400 unit PO DAILY 06/10/17 06/10/17 History Allergies Allergy/AdvReac Type Severity Reaction Status Date / Time No Known Drug Allergies Allergy Unknown Verified 06/10/17 12:40 Exam Vital Signs: Temperature 97.2 F 06/10/17 15:08 Pulse Rate 69 06/10/17 15:08 Respiratory Rate 18 06/10/17 15:08 Blood Pressure 143/69 H 06/10/17 15:08 Pulse Oximetry 95 06/10/17 15:08 Height/Weight/BMI: Height 5 ft 7 in Weight 145 lb 4.554 oz Body Mass Index 22.7 Comments: Patient resting in bed, watching TV. - Constitutional Present: no acute distress, well nourished, well developed, cooperative - Routine HEENT Exam Head: Present: normocephalic Eye: Present: PERRL. Absent: conjunctival icterus ENT: Present: mucous membranes moist, oropharynx clear, dentition normal Comments: mild swelling with ecchymosis noted to right eyebrow; nasal deviation to the left noted consistent with nasal fracture; no dental injury. - Routine Neck Exam Present: supple, full ROM, trachea midline. Absent: tenderness - Routine Chest/Breast/Axilla Exam Chest wall: Absent: tenderness, pacemaker - Routine Respiratory Exam Present: CTA bilaterally. Absent: rales, respiratory distress, rhonchi, stridor , wheezes, crackles - Routine Cardiovascular Exam Present: RRR, S1, S2 - Routine Abdominal Exam Present: soft, normoactive bowel sounds, non distended, non tender - Routine Extremities Exam Present: no edema, non tender, full ROM, pulses intact - Routine Back/Spine/Pelvis Exam Back/Spine: Present: full ROM. Absent: vertebral tenderness - Routine Skin Exam Present: dry, warm. Absent: jaundice Comments: afebrile. - Routine Neurological Exam Present: alert, oriented X3, CN II-XII intact, moving all extremities, hearing grossly intact, normal speech. Absent: motor deficit, altered mental status, hemineglect, facial asymmetry - Routine Psychiatric Exam Present: normal affect, cooperative, good insight Results - Labs CBC & Chem 7: 06/10/17 12:42 06/10/17 12:42 - Imaging and Cardiology CT scan - head Status: image reviewed by me Additional comments: Date of Exam: 06/10/17 Type of Exam(s): CT head/brain wo con Reason for Exam(s): fall with ms changes FINDINGS: There is mild prominence of the ventricles and sulci compatible with cortical atrophy. There is no mass, mass effect, or midline shift. No evidence for intracranial hemorrhage. No intra or extra-axial fluid collections. No evidence for depressed skull fracture. The included portions of the sinuses are clear. There is a minimally displaced right nasal a low fracture. IMPRESSION: Mild cortical atrophy. No evidence for acute cortical infarct, intracranial hemorrhage, or mass. Assessment and Plan (1) Closed head injury without loss of consciousness Current visit: Yes Status: Acute (2) Nasal fracture Current visit: Yes Status: Acute (3) Mental status change Current visit: Yes Status: Acute Assessment and Plan: Assessment Close head injury without loss of consciousness - acute. Altered mental status - acute. Nasal fracture - acute. Mechanical fall - acute. Delusional disorder. Schizophrenia. Borderline personality disorder. Constipation. Hyperlipidemia. Osteoporosis. History of breast cancer. Hypertension. Seasonal allergies. Plan - 06/10/17 Admit patient to observation status under the care of Dr. Desouza and hospitalist service. In light of concern for altered mental status, neuro checks Q4Hs. Monitor patient closely on telemetry. CT head in ED was negative. Tylenol as needed for pain control. Continue home medications. Patient reports she is no longer taking medications for psychiatric illnesses, hypertension or hyperlipidemia. Monitor blood pressure closely. Will consult case management given patient's significant financial concerns and noncompliance with medications given lack of funds to assist with exploring community resources. Ativan and Haldol PRN agitation given psychiatric history. Patient requests a flu shot prior to discharge as she was unable to get her's at [facility] today. Upon discharge, patient's care will be returned to PCP, Dr. Morgan. Patient was seen and examined independently of Norma and case discussed. Agree with her note above as a reflection of our shared plan. Yuliana actually feels quite well and denies any pain or other complaints to me. She was reportedly confused in the ED after the fall but is alert and oriented now, can relate the events of the fall, did not lose consciousness. CT head reviewed and no hemorrhage or hematoma noted. Will monitor neurochecks and keep her overnight. If doing well in the morning she will likely return home. Will try to look into community resources for her as well given issues with medication cost. Soraida Desouza MD DVT Prophylaxis: SCD's Resuscitation Status: Full Code - Time spent with patient Time with patient PN: 70 minutes - Physician Narrative Physician: Soraida Desouza MD Narrative: Date: 06/10/17 Time: 1625 Hospital Course Summary Disclaimer: The visit summary below is not to be considered part of the above Progress Note. Hospital Course: Plan - 06/10/17 Admit patient to observation status under the care of Dr. Desouza and hospitalist service. In light of concern for altered mental status, neuro checks Q4Hs. Monitor patient closely on telemetry. CT head in ED was negative. Tylenol as needed for pain control. Continue home medications. Patient reports she is no longer taking medications for psychiatric illnesses, hypertension or hyperlipidemia. Monitor blood pressure closely. Will consult case management given patient's significant financial concerns and noncompliance with medications given lack of funds to assist with exploring community resources. Ativan and Haldol PRN agitation given psychiatric history. Patient requests a flu shot prior to discharge as she was unable to get her's at [facility] today. Upon discharge, patient's care will be returned to PCP, Dr. Morgan.
[2017-06-10 23:15] VITALS: O2SAT 96
[2017-06-11] MEDS ORDERED: ASCORBIC ACID 500 MG TABLET PO SCH (09:00)
[2017-06-11] MEDS ORDERED: BETA CAROTENE 25000 UNIT PO SCH (09:00)
[2017-06-11] MEDS ORDERED: LISINOPRIL 10 MG TABLET PO SCH (09:00)
[2017-06-11] MEDS ORDERED: CALCIUM CARBONATE 600 MG TABLET PO SCH (09:00)
[2017-06-11 09:20] VITALS: PULSE 64
--- NOTE | 2017-06-11 10:19 | Discharge Summary ---
Discharge Information Date of admission: 06/10/17 14:27 Anticipated date of discharge: 06/11/17 Attending Physician: Soraida Desouza MD Primary care physician: Lang Morgan MD Consults: 06/11/17 08:00 Case Management Consult [CONS] Routine Reason For Exam: medication noncompliance due to lack of funds; - Discharge Diagnosis (1) Closed head injury without loss of consciousness Status: Acute (2) Nasal fracture Status: Acute (3) Mental status change Status: Resolved Acute encephalopathy, closed head injury, nasal fracture, fall from standing - Laboratory Labs: 06/11/17 05:19 06/11/17 05:19 - Radiology Radiology: Date of Exam: 06/10/17 Ordering Provider: Austyn Rudd MD Type of Exam(s): CT head/brain wo con Reason for Exam(s): fall with ms changes Indication: fall with ms changes PROCEDURE: CT head/brain wo con: Encounter: Initial Comparison: None. FINDINGS: There is mild prominence of the ventricles and sulci compatible with cortical atrophy. There is no mass, mass effect, or midline shift. No evidence for intracranial hemorrhage. No intra or extra-axial fluid collections. No evidence for depressed skull fracture. The included portions of the sinuses are clear. There is a minimally displaced right nasal a low fracture. IMPRESSION: Mild cortical atrophy. No evidence for acute cortical infarct, intracranial hemorrhage, or mass. Preliminary report was provided by Ghanshyam campbell . History of Present Illness HPI: Yuliana Smith is a pleasant 81-year-old female patient who presented to [facility] [place] ED via EMS today, 06/10/17, after falling. She reports that she was walking to [employer] today around lunch time to get her flu shot and tripped on the side walk. She denies any proceeding symptoms including no chest pain, shortness of breath , abdominal pain, nausea, vomiting or dysuria. She denies any recent illness, fevers, chills, cough or congestion. She admits to a history of occasional dizziness which she treats successfully by drinking gatorade but denies any dizziness, lightheadedness or syncope today. Upon falling, she hit her head and face resulting in significant nasal bleeding. She was transported to [facility] [place] ED for further evaluation. While in the ED, labs were obtained and unremarkable. CT head revealed no acute intracranial abnormalities or hemorrhage. Clinical exam is highly suspicious for nasal fracture and bleeding stopped prior to arrival. While in the ED, she was noted to have some initial confusion and altered mental status. Dr. Desouza was consulted and accepted the patient into observation status for further evaluation and close neurologic monitoring. On exam, she is seen resting in bed in her room, watching TV. She is alert and orientated x 3 and is able to recall all events of the day. She denies any current complaints or concerns and asks about being able to eat because she is hungry. Prior medication list was reviewed and she admits that she has had to limit her medications due to finances. She has a history of schizophrenia and possible borderline personality but is not currently on any medications because she feels better without them. She denies any hallucinations and no SI or HI. She has previously seen Dr. Mancera for psychiatric care. Objective Vital signs: Temperature 97.0 F 06/10/17 23:14 Pulse Rate 64 06/11/17 08:00 Respiratory Rate 12 06/10/17 23:14 Blood Pressure 158/75 H 06/10/17 23:14 Pulse Oximetry 96 06/10/17 23:14 Rhythm: Normal Sinus Rhythm Height/Weight/BMI: Height 1.7 m Weight 65.9 kg Body Mass Index 22.7 - Constitutional Present: no acute distress, well nourished, well developed, cooperative - Routine HEENT Exam Eye: Present: EOMI, periorbital ecchymosis. Absent: conjunctival icterus ENT: Present: mucous membranes moist, oropharynx clear, nares patent - Routine Respiratory Exam Present: CTA bilaterally. Absent: rhonchi, wheezes, crackles - Routine Cardiovascular Exam Present: RRR. Absent: murmur - Routine Abdominal Exam Present: soft, non distended, non tender - Routine Extremities Exam Present: no edema, pulses intact - Routine Skin Exam Present: dry, warm. Absent: rash - Routine Neurological Exam Present: alert, oriented X3, CN II-XII intact, moving all extremities, vision grossly intact, hearing grossly intact, normal speech. Absent: tremors - Routine Psychiatric Exam Present: normal affect Hospital Course This is a general summary of the patient's hospital course. For more details refer to the complete medical record. Hospital course: Plan - 06/10/17 Admit patient to observation status under the care of Dr. Desouza and hospitalist service. In light of concern for altered mental status, neuro checks Q4Hs. Monitor patient closely on telemetry. CT head in ED was negative. Tylenol as needed for pain control. Continue home medications. Patient reports she is no longer taking medications for psychiatric illnesses, hypertension or hyperlipidemia. Monitor blood pressure closely. Will consult case management given patient's significant financial concerns and noncompliance with medications given lack of funds to assist with exploring community resources. Ativan and Haldol PRN agitation given psychiatric history. Patient requests a flu shot prior to discharge as she was unable to get her's at [facility] today. Upon discharge, patient's care will be returned to PCP, Dr. Morgan. 06/11/17 Yuliana did well overnight. She has remained without confusion and with no neuro changes. Flu shot will be given prior to discharge. She feels well and would like to go home today, has been able to ambulate without issues. Will DC home today and f/u with her PCP, Dr. Morgan. I have started lisinopril 10 mg daily for HTN as her BP has been high and she has been off most of her medications recently, which we discussed. Time spent with patient: discharge greater than 30 minutes Resuscitation Status: Full Code Discharge Plan - Discharge Disposition Discharge Date: 06/11/17 Disposition: Discharged Home, Self-Care *Condition: Improved Reason For Visit (Visit label in EMR): Concussion, mental status change - Discharge Medications *Discharge Medications: New Acetaminophen [Tylenol] 500 mg PO Q5H PRN tablet PRN Reason: Discomfort Lisinopril [Prinivil] 10 mg PO DAILY 30 Days #30 tab Continue Vitamin E 400 unit PO DAILY Senna + Docusate [Senna Plus Tablet] 1 tab PO DAILY PRN PRN Reason: Constipation Maltodextrin [Latia Carb] 1 dose PO DAILY Calcium Carbonate 600 mg PO DAILY Beta-Carotene [Beta Carotene] 25,000 unit PO DAILY Ascorbate Calcium [Vitamin C] 500 mg PO DAILY Vitamin D 1 tab PO DAILY - Discharge Packet/Instructions *Diet: Regular diet as tolerated *Activity: Up ad luis angel; activity as tolerated *Pain Management/Treatment: If you have any pain, you can take tylenol as needed for pain control. *Wound Care: N/A *Expected Signs/Symptoms: Your nose and eye may be sore from where you fell. *Notify Physician if: you have dizziness, additional falls or new symptoms of confusion or drowsiness. *During Business Hours Contact: your primary care physician. *After Business Hours Contact: the [facility] switchboard or come to the ED for evaluation. *Pending Lab/Results: No Pending Lab - Referrals/Follow Up *Referrals/Follow Up: Lang Morgan MD [Family Provider] - 1 Week Lizette Mancera MD [Physician] - 2 Weeks - Patient Handouts Patient Handouts: Nasal Fracture (DC) - Dismissal Complete Discharge Instructions are:: Complete Physician Narrative - Narrative Attestation Narrative: Date: 06/11/17 Time: 9284
[2017-06-11 10:43] VITALS: BP 137/69; RESP 24; TEMP 96.2
[2017-06-11] MEDS ORDERED: INFLUENZA VAC High Dose 2017-18 (Fluzone HD*) (>=65yo) 0.5ml IM ONE (11:20)
[2017-06-11] MEDS ORDERED: INFLUENZA VAC. INJ. ADMIN CHARGE INJ ONE (12:49)
== END 2017-06-11 12:50 | disposition home or self-care (01) ==
LOC: MED 11:45 → ED 11:45 → MED 14:45
PROVIDERS: ADMIT Internal Medicine; ATTEND Internal Medicine